=== PATIENT | female | born 1965 | race Caucasian/White ===

== ENCOUNTER 2021-08-09 10:58 | Inpatient (IN) | payer BC ==
[~2021-08-09] VITALS: Ht 167.6 cm; Wt 84.5 kg
[~2021-08-09 10:58] MED LIST: CARV25TA2 PO; ESOM20CA PO; LEVO100T5 PO; LOSA-73 PO; ONDA-84 PO; ZOLP10TA PO
[2021-08-09] MEDS: IV RINGERS,LACTATED 1000ML 1,000 ML IV SCH ×2 (11:25→18:08)
[2021-08-09 11:31] VITALS: BP 144/88
[2021-08-09] MEDS ORDERED: ONDANSETRON PF 4 MG/2 ML VIAL. IM ONE (11:45)
[2021-08-09] MEDS ORDERED: SCOPOLAMINE 1.5MG PATCH. TD ONE ×2 (11:49→12:15)
--- NOTE | 2021-08-09 12:02 | PDOC ---
SURGICAL PROGRESS NOTE DATE: 08/09/21 TIME: 11:59 Subjective Pre-Op Note 55 yo F with biliary dyskinesia. TO OR for laparoscopic versus open cholecystectomy with cholangiogram, liver biopsy. R/R/B/A d/w pt and pt's supportive SO. Risks, including, but not limited to: bleeding, infection, damage to surrounding structures, risk of anesthesia, risk of open, risk of not resolving symptoms. They appear to understand, their questions are answered and they elect to p roceed Office note H&P reviewed and unchanged. Vital Signs Vital Signs Date Time Temp Pulse Resp B/P (MAP) Pulse Ox O2 Delivery O2 Flow Rate FiO2 08/09/21 11:34 97.5 79 144/88 97 Room Air 97.5 08/09/21 11:31 14 Justicifation of Admission Dx: Justifications for Admission: Justification of Admission Dx: N/A SHANA SALAZAR MD August 09, 2021 12:02
[2021-08-09] MEDS ORDERED: IOHEXOL 300 MG/ML 50 ML VIAL. ONE (13:34)
[2021-08-09] MEDS ORDERED: BUPIVACAINE-EPI 0.5% 30 ML VIAL KIT. ONE (13:34)
[2021-08-09] MEDS ORDERED: BISACODYL 10 MG SUPP.RECT. ONE (13:34)
[2021-08-09] MEDS ORDERED: SURGICEL HEMOSTAT 2X14 EACH. ONE (13:34)
[2021-08-09] MEDS ORDERED: SEVOFLURANE 61 TO 120 MINUTES. IH ONE (13:36)
[2021-08-09] MEDS ORDERED: PROPOFOL 10 MG/ML (20ML) VIAL. IV ONE ×2 (13:36→14:27)
[2021-08-09] MEDS ORDERED: ONDANSETRON PF 4 MG/2 ML VIAL. ONE (13:36)
[2021-08-09] MEDS ORDERED: LIDOCAINE 2% PF 5 ML VIAL. ONE (13:36)
[2021-08-09] MEDS ORDERED: DEXAMETHASONE SOD PHOS 4 MG/ML VIAL ONE (13:36)
[2021-08-09] MEDS ORDERED: fentaNYL PF VIAL 100 MCG/2 ML VIAL ONE (13:36)
[2021-08-09] MEDS ORDERED: ROCURONIUM 50 MG/5 ML VIAL. ONE (13:38)
[2021-08-09] MEDS ORDERED: NEOSTIGMINE METHYLSULFATE 5 MG/5 ML SYRINGE. ONE (13:39)
[2021-08-09] MEDS ORDERED: HEPARIN 1,000 UNIT in IV NORMAL SALINE 1,000 ML for SURG PERIOP IRR ONE (14:00)
[2021-08-09] MEDS ORDERED: HYDROmorphone 2 MG/ML INJ. ONE (14:20)
[2021-08-09] MEDS ORDERED: PHENYLEPHRINE in 0.9% NACL PF 1 MG/10 ML SYRINGE. IV ONE (14:44)
[2021-08-09] MEDS ORDERED: ePHEDrine PF IN SALINE 50 MG/10 ML SYRINGE. IV ONE (14:56)
[2021-08-09] MEDS ORDERED: HYDROcodone/APAP 5/325MG 1 TAB TABLET PO PRN (16:00)
[2021-08-09] MEDS ORDERED: 0.9 % SODIUM CHLORIDE 10 ML DISP.SYRIN. IV PRN (16:00)
[2021-08-09] MEDS ORDERED: DEXTROSE 50% 25 GM / 50ML DISP.SYRIN. IV PRN (16:00)
[2021-08-09] MEDS: IV NORMAL SALINE 1000ML BAG 1,000 ML IV SCH (16:00)
[2021-08-09] MEDS ORDERED: NALOXONE 0.4 MG/ML VIAL. IV PRN (16:00)
[2021-08-09] MEDS ORDERED: PROCHLORPERAZINE 10 MG/2 ML VIAL. ONE (16:35)
[2021-08-09] MEDS ORDERED: PROCHLORPERAZINE 10 MG/2 ML VIAL. IV PRN (16:45)
[2021-08-09] MEDS: ONDANSETRON PF 4 MG/2 ML VIAL. IVP PRN (18:08)
[2021-08-09 19:00] VITALS: BP 137/80
[2021-08-09] MEDS: DOCUSATE SODIUM 100 MG CAPSULE. PO SCH (20:43)
--- NOTE | 2021-08-09 21:11 | PDOC4 ---
OPERATIVE NOTE Date: Date: August 09, 2021 Pre-Op Diagnosis: Biliary dyskinesia, hepatomegaly Post-Op Diagnosis: same, cirrhosis Procedure Performed: laparoscopic cholecystectomy with cholangiogram, liver biopsy Surgeon: Atif Salazar Anesthesia Type: GETA plus local Blood Loss: 50 Specimans Obtained: gallbladder, liver biopsy Findings: morbid obesity, chronic induration of gallbladder, normal cholangiogram; hard, nodular liver, with fatty infiltration Complications: none Operative Note: After obtaining informed consent, patient was taken to OR, induced under GETA and prepped in the usual fashion. 5 mm ports placed umbilical and RUQ, 12 port placed epigastric, all under laparoscopic guidance. Abdominal cavity was explored and normal except as noted above. Gallbladder was taken off fossa using cautery in dome down fashion. This was difficult, given obesity and hard liver. Cystic artery ligated with clips. Cholangiogram obtained via cystic duct and was normal. Cystic duct was controlled with clips and hemolok. Gallbladder was placed in bag, delivered and sent to pathology. Endoshears used to excise portion of liver and sent to pathology. Hemostasis was obtained with cautery. Copious irrigation. No evidence of bleeding or other pathology. Ports removed without bleeding. Fascia repaired with 0 vicryl. Skin repaired with 4 0 monocryl. Dressing placed. Patient tolerated procedure well and sent to PACU in stable condition. All counts correct. Wound class is 3. Of note, pt's SO notes consumption of 1/5 of gin within 3 days. Etoh cessation will be encouraged. SHANA SALAZAR MD August 09, 2021 21:11
[2021-08-09] MEDS ORDERED: ZOLPIDEM 5 MG TABLET. PO PRN (21:15)
[2021-08-09] MEDS: CARVEDILOL 12.5 MG TABLET. PO SCH (21:26)
[2021-08-09 23:09] VITALS: BP 140/60
[2021-08-10] MEDS: IV RINGERS,LACTATED 1000ML 1,000 ML IV SCH ×4 (01:05→14:25)
[2021-08-10] MEDS: ONDANSETRON PF 4 MG/2 ML VIAL. IVP PRN ×4 (01:52→20:33)
[2021-08-10] MEDS: MORPHINE SULFATE 2 MG/ML INJ. IV PRN ×6 (04:16→20:34)
[2021-08-10] MEDS: LEVOTHYROXINE 100 MCG TABLET PO SCH (05:25)
[2021-08-10 07:00] VITALS: BP 127/75
[2021-08-10 07:24] LABS: BASO % 0 % (0-3); EOS # 0.1 x10^3/uL (0.0-0.7); EOS % 1 % (0-3); HEMATOCRIT 30.2 % (36.0-47.0); HEMOGLOBIN 10.3 g/dL (12.0-15.5); LYMPH # 1.2 x10^3/uL (1.0-4.8); LYMPH % 16 % (24-48); MEAN CORPUSCULAR HEMOGLOBIN 34 pg (25-35); MEAN CORPUSCULAR HGB CONC 34 g/dL (31-37); MEAN CORPUSCULAR VOLUME 100 fL (79-100); MONO # 0.8 x10^3/uL (0.0-1.1); MONO % 10 % (0-9); NEUT # 5.4 x10^3/uL (1.8-7.7); NEUT % 73 % (31-73); PLATELET COUNT 114 x10^3/uL (140-400); RED BLOOD COUNT 3.03 x10^6/uL (3.50-5.40); RED CELL DISTRIBUTION WIDTH 13.8 % (11.5-14.5); WHITE BLOOD COUNT 7.4 x10^3/uL (4.0-11.0)
[2021-08-10 07:34] LABS: ALBUMIN 2.1 g/dL (3.4-5.0); CALCIUM 6.1 mg/dL (8.5-10.1); CREATININE 2.2 mg/dL (0.6-1.0); DIRECT BILIRUBIN 1.6 mg/dL (0.0-0.2); GFR 23.1; TOTAL BILIRUBIN 2.4 mg/dL (0.2-1.0); TOTAL PROTEIN 5.5 g/dL (6.4-8.2)
[2021-08-10 07:37] LABS: POTASSIUM 2.6 mmol/L (3.5-5.1)
[2021-08-10] MEDS ORDERED: POTASSIUM CHLORIDE 20 MEQ TABLET.ER. PO SCH (07:45)
[2021-08-10] MEDS ORDERED: ELECTROLYTE (NON-ICU) PROTOCOL. MC PRN (07:45)
[2021-08-10] MEDS ORDERED: POTASSIUM CHLORIDE 20 MEQ TABLET.ER. PO ONE (07:45)
[2021-08-10] MEDS ORDERED: POTASSIUM CHLORIDE 10MEQ 100 ML IV SCH ×2 (07:45)
[2021-08-10] MEDS: POTASSIUM CHLORIDE 10MEQ 100 ML IV SCH ×4 (08:03→14:30)
[2021-08-10] MEDS: DOCUSATE SODIUM 100 MG CAPSULE. PO SCH ×2 (09:41→21:00)
[2021-08-10] MEDS: LOSARTAN POTASSIUM 25 MG TABLET. PO SCH (09:42)
[2021-08-10] MEDS: CARVEDILOL 12.5 MG TABLET. PO SCH ×2 (09:42→17:13)
[2021-08-10 11:00] VITALS: BP 131/67
[2021-08-10 15:00] VITALS: BP 126/87
--- NOTE | 2021-08-10 15:22 | PDOC ---
SURGICAL PROGRESS NOTE DATE: 08/10/21 TIME: 15:20 Subjective Pt with c/o N/V, pain controlled Vital Signs Vital Signs Date Time Temp Pulse Resp B/P (MAP) Pulse Ox O2 Delivery O2 Flow Rate FiO2 08/10/21 14:32 16 Room Air 08/10/21 11:00 97.6 81 131/67 (88) 92 97.6 08/10/21 07:35 2.0 I&O Intake and Output 08/10/21 07:00 Intake Total 2750 ml Output Total 50 ml Balance 2700 ml Intake Oral 1000 ml IV Total 1750 ml Output Estimated Blood Loss 50 ml General: Alert, Oriented X3, Cooperative, No acute distress Abdomen: Soft, No tenderness, Other (dressing intact) Labs Laboratory Tests Test 08/09/21 11:00 08/10/21 06:50 POC SARS CoV-2 Antigen Negative (NEGATIVE) White Blood Count 7.4 x10^3/uL (4.0-11.0) Red Blood Count 3.03 x10^6/uL (3.50-5.40) Hemoglobin 10.3 g/dL (12.0-15.5) Hematocrit 30.2 % (36.0-47.0) Mean Corpuscular Volume 100 fL (79-100) Mean Corpuscular Hemoglobin 34 pg (25-35) Mean Corpuscular Hemoglobin Concent 34 g/dL (31-37) Red Cell Distribution Width 13.8 % (11.5-14.5) Platelet Count 114 x10^3/uL (140-400) Neutrophils (%) (Auto) 73 % (31-73) Lymphocytes (%) (Auto) 16 % (24-48) Monocytes (%) (Auto) 10 % (0-9) Eosinophils (%) (Auto) 1 % (0-3) Basophils (%) (Auto) 0 % (0-3) Neutrophils # (Auto) 5.4 x10^3/uL (1.8-7.7) Lymphocytes # (Auto) 1.2 x10^3/uL (1.0-4.8) Monocytes # (Auto) 0.8 x10^3/uL (0.0-1.1) Eosinophils # (Auto) 0.1 x10^3/uL (0.0-0.7) Basophils # (Auto) 0.0 x10^3/uL (0.0-0.2) Sodium Level 133 mmol/L (136-145) Potassium Level 2.6 mmol/L (3.5-5.1) Chloride Level 92 mmol/L (98-107) Carbon Dioxide Level 28 mmol/L (21-32) Anion Gap 13 (6-14) Blood Urea Nitrogen 6 mg/dL (7-20) Creatinine 2.2 mg/dL (0.6-1.0) Estimated GFR (Cockcroft-Gault) 23.1 Glucose Level 106 mg/dL (70-99) Calcium Level 6.1 mg/dL (8.5-10.1) Total Bilirubin 2.4 mg/dL (0.2-1.0) Direct Bilirubin 1.6 mg/dL (0.0-0.2) Aspartate Amino Transf (AST/SGOT) 141 U/L (15-37) Alanine Aminotransferase (ALT/SGPT) 51 U/L (14-59) Alkaline Phosphatase 68 U/L (46-116) Total Protein 5.5 g/dL (6.4-8.2) Albumin 2.1 g/dL (3.4-5.0) Laboratory Tests Test 08/10/21 06:50 White Blood Count 7.4 x10^3/uL (4.0-11.0) Red Blood Count 3.03 x10^6/uL (3.50-5.40) Hemoglobin 10.3 g/dL (12.0-15.5) Hematocrit 30.2 % (36.0-47.0) Mean Corpuscular Volume 100 fL (79-100) Mean Corpuscular Hemoglobin 34 pg (25-35) Mean Corpuscular Hemoglobin Concent 34 g/dL (31-37) Red Cell Distribution Width 13.8 % (11.5-14.5) Platelet Count 114 x10^3/uL (140-400) Neutrophils (%) (Auto) 73 % (31-73) Lymphocytes (%) (Auto) 16 % (24-48) Monocytes (%) (Auto) 10 % (0-9) Eosinophils (%) (Auto) 1 % (0-3) Basophils (%) (Auto) 0 % (0-3) Neutrophils # (Auto) 5.4 x10^3/uL (1.8-7.7) Lymphocytes # (Auto) 1.2 x10^3/uL (1.0-4.8) Monocytes # (Auto) 0.8 x10^3/uL (0.0-1.1) Eosinophils # (Auto) 0.1 x10^3/uL (0.0-0.7) Basophils # (Auto) 0.0 x10^3/uL (0.0-0.2) Sodium Level 133 mmol/L (136-145) Potassium Level 2.6 mmol/L (3.5-5.1) Chloride Level 92 mmol/L (98-107) Carbon Dioxide Level 28 mmol/L (21-32) Anion Gap 13 (6-14) Blood Urea Nitrogen 6 mg/dL (7-20) Creatinine 2.2 mg/dL (0.6-1.0) Estimated GFR (Cockcroft-Gault) 23.1 Glucose Level 106 mg/dL (70-99) Calcium Level 6.1 mg/dL (8.5-10.1) Total Bilirubin 2.4 mg/dL (0.2-1.0) Direct Bilirubin 1.6 mg/dL (0.0-0.2) Aspartate Amino Transf (AST/SGOT) 141 U/L (15-37) Alanine Aminotransferase (ALT/SGPT) 51 U/L (14-59) Alkaline Phosphatase 68 U/L (46-116) Total Protein 5.5 g/dL (6.4-8.2) Albumin 2.1 g/dL (3.4-5.0) Assessment/Plan s/p lap haydee replace k will ask hospitalist to comment, especially given etoh use and risk of withdrawal will ask GI to comment on N/V encouraged etoh cessation Justicifation of Admission Dx: Justifications for Admission: Justification of Admission Dx: N/A SHANA SALAZAR MD August 10, 2021 15:21
[2021-08-10] MEDS: IV NORMAL SALINE 1000ML BAG 1,000 ML IV SCH (15:42)
--- NOTE | 2021-08-10 16:09 | PDOC2 ---
GI CONSULT Date of Service: DATE: 08/10/21 TIME: 15:52 Reason For Consult: biliary dyskinesia HPI: HPI: 55 y/o female s/p cholecystectomy and liver biopsy, h/o biliary dyskinesia. Tells me ill x 12 weeks - describes bloating, "air in stomach that I can't get out," feeling that food "sits" in upper abdomen, early satiety, and nausea/vomiting/retching. Bloating discomfort is constant. N/v/retching occurs with or without eating - often "white foam." Keeps pills down. Symptoms unchanged post-op, but not worse. Has seen Dr. Martinez. EGD 07/13/21: LA Grade A reflux esophagitis (negative for Sunshine's), chronic gastritis (no biopsy), normal duodenum. Given Nexium 20mg QD - she felt not helpful so quick after short trial. Per office notes, CT 07/19/21 showed hepatic steatosis and hepatomegaly and US s showed hepatomegaly with fatty infiltration throughout the liver. Records from [facility] - done at [facility] (where CT and US also performed). Recommendation made for GES at office visit on 07/27/21 - not done yet. No previous colonoscopy. Denies reflux/heartburn, dysphagia, hematemesis, hematochezia, and melena. Estimates 9 pounds weight loss during this time. Had runny stools for awhile, now not stooling that much - attributes to not eating. Passing some flatus. Was told of abnormal liver labs in the past - "it's because I drink too much." Says Hepatitis labs were negative w/ PCP. Denies pancreas and PUD history. On ASA. Significant other present, says he is diabetic and checks her glucose frequently and "she's the opposite of diabetic." He also says that she hasn't drank in a couple days and that doesn't make a difference. Additionally describes her only being able ot eat half an enchilada when they were out to eat recently. PMH: PMH: HTN, hypothyroidism, MRSA breast augmentation, , tubal ligation, tonsillectomy FH: Family History: Cancer (father - pancreatic), DM, Hypertension Social History: Smoke: Quit ALCOHOL: heavy (daily, "too much") Drugs: Other (in past but never IVDU) ROS: GEN: Denies fevers, chills, sweats HEENT: Denies blurred vision, sore throat CV: Denies chest pain RESP: Denies shortness of air, cough GI: Per HPI : Denies hematuria, dysuria ENDO: +weight loss NEURO: Denies confusion, dizziness MSK: Denies weakness, joint pain/swelling SKIN: Denies jaundice, pruritus Vitals: Vitals: Vital Signs Date Time Temp Pulse Resp B/P (MAP) Pulse Ox O2 Delivery O2 Flow Rate FiO2 08/10/21 15:42 Room Air 08/10/21 15:00 97.8 73 18 126/87 (100) 93 97.8 08/10/21 07:35 2.0 Labs: Labs: Laboratory Tests Test 08/10/21 06:50 White Blood Count 7.4 x10^3/uL (4.0-11.0) Red Blood Count 3.03 x10^6/uL (3.50-5.40) Hemoglobin 10.3 g/dL (12.0-15.5) Hematocrit 30.2 % (36.0-47.0) Mean Corpuscular Volume 100 fL (79-100) Mean Corpuscular Hemoglobin 34 pg (25-35) Mean Corpuscular Hemoglobin Concent 34 g/dL (31-37) Red Cell Distribution Width 13.8 % (11.5-14.5) Platelet Count 114 x10^3/uL (140-400) Neutrophils (%) (Auto) 73 % (31-73) Lymphocytes (%) (Auto) 16 % (24-48) Monocytes (%) (Auto) 10 % (0-9) Eosinophils (%) (Auto) 1 % (0-3) Basophils (%) (Auto) 0 % (0-3) Neutrophils # (Auto) 5.4 x10^3/uL (1.8-7.7) Lymphocytes # (Auto) 1.2 x10^3/uL (1.0-4.8) Monocytes # (Auto) 0.8 x10^3/uL (0.0-1.1) Eosinophils # (Auto) 0.1 x10^3/uL (0.0-0.7) Basophils # (Auto) 0.0 x10^3/uL (0.0-0.2) Sodium Level 133 mmol/L (136-145) Potassium Level 2.6 mmol/L (3.5-5.1) Chloride Level 92 mmol/L (98-107) Carbon Dioxide Level 28 mmol/L (21-32) Anion Gap 13 (6-14) Blood Urea Nitrogen 6 mg/dL (7-20) Creatinine 2.2 mg/dL (0.6-1.0) Estimated GFR (Cockcroft-Gault) 23.1 Glucose Level 106 mg/dL (70-99) Calcium Level 6.1 mg/dL (8.5-10.1) Total Bilirubin 2.4 mg/dL (0.2-1.0) Direct Bilirubin 1.6 mg/dL (0.0-0.2) Aspartate Amino Transf (AST/SGOT) 141 U/L (15-37) Alanine Aminotransferase (ALT/SGPT) 51 U/L (14-59) Alkaline Phosphatase 68 U/L (46-116) Total Protein 5.5 g/dL (6.4-8.2) Albumin 2.1 g/dL (3.4-5.0) Allergies: Coded Allergies: Sulfa (Sulfonamide Antibiotics) (Verified Adverse Reaction, Intermediate, Rash, 08/09/21) Medications: Current Medications Medications (Trade) Dose Ordered Sig/Conner Route PRN Reason Start Time Stop Time Status Last Admin Dose Admin Ringer's Solution 1,000 ml @ 100 mls/hr Q10H IV 08/09/21 16:00 08/10/21 12:00 Acetaminophen/ Hydrocodone Bitart (Lortab 5/325) 1 tab PRN Q4HRS PRN PO MILD PAIN 1-3 08/09/21 16:00 08/10/21 01:09 Morphine Sulfate (Morphine Sulfate) 1 mg PRN Q1HR PRN IV PAIN-SEE COMMENTS 08/09/21 16:00 08/10/21 14:32 Docusate Sodium (Colace) 100 mg BID PO 08/09/21 21:00 08/10/21 09:41 Ondansetron HCl (Zofran) 4 mg PRN Q6HRS PRN IVP NAUESA, 1ST CHOICE 08/09/21 16:00 08/10/21 14:31 Prochlorperazine Edisylate (Compazine) 5 mg PRN Q10MIN PRN IV NAUSEA 08/09/21 16:45 08/09/21 16:38 Levothyroxine Sodium (Synthroid) 100 mcg DAILY06 PO 08/10/21 06:00 08/10/21 05:25 Losartan Potassium (Cozaar) 25 mg DAILY PO 08/10/21 09:00 08/10/21 09:42 Carvedilol (Coreg) 25 mg BIDWMEALS PO 08/09/21 22:00 08/10/21 09:42 Zolpidem Tartrate (Ambien) 5 mg PRN QHS PRN PO INSOMNIA, MAY REPEAT X1 08/09/21 21:15 08/09/21 21:25 Potassium Chloride/Water 100 ml @ 100 mls/hr Q1H IV 08/10/21 09:00 08/10/21 12:59 DC 08/10/21 14:30 Imaging: Imaging: IOC 08/09/21 pending PE: GEN: NAD HEENT: Atraumatic, PERRL LUNGS: CTAB HEART: RRR ABD: large/probably some distention but soft, epigastric/incisional discomfort, BS+ EXTREMITY/SKIN: BLE w/ compression stockings and SCDs NEURO/PSYCH: A & O 3, perhaps a bit tremulous A/P: A/P: S/p cholecystectomy and liver biopsy Upper abdominal discomfort, bloating, early satiety, n/v, weight loss Macrocytic anemia, thrombocytopenia, hypokalemia, ROSANNA, abnormal LFTs, hypoalbuminemia GERD - quit PPI trial CRC screen - none Suspected alcoholic liver disease - hepatic steatosis/hepatomegaly on past imaging, cirrhosis suspected in OR Alcohol overuse FH pancreatic cancer -- Would resume PPI - IV for now. Monitor labs, check additional (B12, iron, INR). Check KUB for completeness. Will review additional recs w/ Dr. Martinez - unlikely to tolerate GES at this time. EREN STOVALL August 10, 2021 16:09
[2021-08-10] MEDS: PANTOPRAZOLE IV PUSH 40 MG VIAL. IVP SCH (17:12)
[2021-08-10 17:15] LABS: PROTHROMBIN TIME PATIENT 16.4 SEC (11.7-14.0)
[2021-08-10 19:00] VITALS: BP 138/73
[2021-08-10] MEDS ORDERED: HALOPERIDOL LACTATE 5 MG/ML VIAL. IVP PRN (23:15)
[2021-08-10] MEDS ORDERED: diphenhydrAMINE 50 MG/ML VIAL IVP PRN (23:15)
[2021-08-10] MEDS ORDERED: chlordiazePOXIDE HCL 25 MG CAPSULE PO PRN ×2 (23:15)
--- NOTE | 2021-08-10 23:20 | NUR ---
Rapid Response Note: Prior to Rapid Response, VAMPER requested Nurse Senior [employer] Consultant speak to patient regarding pain meds. VAMPER stated patient was refusing oral pain meds and requesting Morphine IVP hourly. Educated patient on better pain control with oral pain meds and questioned patient if she was feeling anxious which she stated yes. Told patient her VAMPER would call physician for medication to help her relax and I would bring Lortab, patient agreeable. RECONDITIONER was obtaining vital signs and patient stated she was, 'jumpy and that scared me'; SBP 190. Patient does have history of drinking 2-4oz of alcohol a day every day. After scanning arm band and getting ready to administer med, patient looked up and to her right, appeared very frightened/wide eyed, grabbed my arm tightly and yelled out. Attempted to talk to patient and asked what was wrong when patient fell back into the bed, entire body became rigid and appeared to have tonic/clonic seizure. Seizure lasted approximately 10 seconds with 45 second apnea period; patient was immediately turned to her right side upon onset of seizure. Patient then had additional seizure which appeared exactly as previous seizure but without apnea. Seizure lasted ~5 seconds; postictal period again lasted about 10 seconds. Patient did become arousable to name, appeared fearful and was pushing staff away, this lasted about 20 seconds and patient calmed and became alert to self--patient reoriented to time, place and events. Dr Louis paged, returned page, notified of above, patient with history of daily alcohol use but not had on CIWA protocol; orders received to start CIWA protocol, stat CT head and consult Neurology in am. While speaking to physician, patient got out of her bed, began roaming in her room then went to the bathroom. When staff approached patient, she became agitated and belligerent; she did allow her VAMPER to assist her back to bed and she calmed. VAMPER and patient notified of orders from Dr Louis. Patient was educated on s/sx of alcohol withdrawal and treatment with Ativan. Patient verbalized understanding. Ativan 4MG IVP administered for CIWA 15; patient educated on importance of calling for assistance, call light within reach, bed in low position and bed alarm on. Post seizure SBP again 190's--staff to recheck after Ativan takes affect. Patient remains on unit at this time, VAMPER to call Rapid Response for additional seizure activity. Patient will be taken to CT by staff. Addendum: 08/11/21 at 0017 by MARKIE BLACKBURN RN Amended: Links added.
--- NOTE | 2021-08-10 23:20 | NUR ---
Nurse manager dialysis ZEV Schaefer at bedside during witnessed seizure. Rapid response called and ZEV Schaefer at bedside throughout rapid. This PEWTER FABRICATOR will continue to monitor.
[2021-08-10 23:27] VITALS: BP 197/119
--- NOTE | 2021-08-10 23:56 | RAD ---
CT scan of the head without contrast 08/10/2021 Clinical History: Seizure. Technique: Unenhanced, contiguous, 5 mm axial sections were obtained through the head. One or more of the following individualized dose reduction techniques were utilized for this study: 1. Automated exposure control. 2. Adjustment of the mA and/or kV according to patient size. 3. Use of iterative reconstruction technique. Findings: There is generalized parenchymal atrophy. No acute parenchymal abnormality is seen. No ext ra-axial fluid collection is noted. No skull fracture is seen. Impression: No acute intracranial abnormality is seen. Electronically signed by: Karlo Roberto MD (08/10/2021 11:53 PM) [id number]
[2021-08-11] VITALS (7 sets, daily range): BP systolic 111–153; BP diastolic 67–93
[2021-08-11] MEDS: IV RINGERS,LACTATED 1000ML 1,000 ML IV SCH ×2 (03:52→08:00)
[2021-08-11 04:49] LABS: BASO % 0 % (0-3); EOS # 0.1 x10^3/uL (0.0-0.7); EOS % 1 % (0-3); HEMATOCRIT 29.3 % (36.0-47.0); HEMOGLOBIN 10.3 g/dL (12.0-15.5); LYMPH # 1.2 x10^3/uL (1.0-4.8); LYMPH % 14 % (24-48); MEAN CORPUSCULAR HEMOGLOBIN 35 pg (25-35); MEAN CORPUSCULAR HGB CONC 35 g/dL (31-37); MEAN CORPUSCULAR VOLUME 98 fL (79-100); MONO # 0.9 x10^3/uL (0.0-1.1); MONO % 11 % (0-9); NEUT # 5.8 x10^3/uL (1.8-7.7); NEUT % 73 % (31-73); PLATELET COUNT 139 x10^3/uL (140-400); RED BLOOD COUNT 2.98 x10^6/uL (3.50-5.40); RED CELL DISTRIBUTION WIDTH 13.6 % (11.5-14.5)
[2021-08-11 05:08] LABS: ALBUMIN 2.1 g/dL (3.4-5.0); ALBUMIN/GLOBULIN RATIO 0.6 (1.0-1.7); CREATININE 1.6 mg/dL (0.6-1.0); GFR 33.3; TOTAL BILIRUBIN 2.6 mg/dL (0.2-1.0); TOTAL PROTEIN 5.5 g/dL (6.4-8.2)
[2021-08-11 05:16] LABS: CALCIUM 5.8 mg/dL (8.5-10.1); POTASSIUM 2.5 mmol/L (3.5-5.1)
[2021-08-11] MEDS ORDERED: CALCIUM GLUCONATE 1,000 MG/10 ML VIAL. IVP ONE (05:45)
[2021-08-11] MEDS: LEVOTHYROXINE 100 MCG TABLET PO SCH (06:20)
[2021-08-11] MEDS: POTASSIUM CHLORIDE 10MEQ 100 ML IV SCH ×7 (06:34→23:46)
--- NOTE | 2021-08-11 07:27 | PDOC1 ---
History and Physical Date of Service: DOS: DATE: 08/11/21 TIME: 07:21 Chief Complaint: Chief Complain: Acute abdominal pain History of Present Illness: HPI: 55-year-old female who presented to the hospital for an elective cholecystectomy status post laparoscopic cholecystectomy with postoperative course complicated by electrolyte derangement and seizures and alcohol withdrawal. Patient had a episode of tonic-clonic seizures last night in the postoperative period. Patient has severe electrolyte abnormalities including hypocalcemia, hypokalemia, hyponatremia, hypochloremia and some kidney injury. Patient was given Ativan and also IV electrolyte replacements. Past Medical/Surgical History: PMH/PSH: History of hypertension, hypothyroidism, breast augmentation, , tubal ligation, tonsillectomy Allergies: Allergies: Coded Allergies: Sulfa (Sulfonamide Antibiotics) (Verified Adverse Reaction, Intermediate, Rash, 08/09/21) Family History: Family History: History of diabetes mellitus and hypertension in the family Social History: Social History: Former smoker and heavy drinking. Current Medications: Current Medications Current Medications Cefazolin Sodium/ Dextrose 50 ml @ 100 mls/hr 1X PREOP PRN IV PRIOR TO PROCEDURE Last administered on 08/09/21at 13:58; Start 08/09/21 at 06:00; Stop 08/09/21 at 18:00; Status DC Ondansetron HCl (Zofran) 4 mg 1X ONCE IM Last administered on 08/09/21at 11:45; Start 08/09/21 at 11:45; Stop 08/09/21 at 11:46; Status DC Ringer's Solution 1,000 ml @ 75 mls/hr [id number] IV Last administered on 08/10/21at 01:05; Start 08/09/21 at 11:45; Stop 08/10/21 at 19:42; Status DC Scopolamine (Transderm-Scop) 1 patch STK-MED ONCE TD ; Start 08/09/21 at 11:49; Stop 08/09/21 at 11:49; Status DC Scopolamine (Transderm-Scop) 1 patch 1X ONCE TD Last administered on 08/09/21at 12:10; Start 08/09/21 at 12:15; Stop 08/09/21 at 12:16; Status DC Cellulose (Surgicel Hemostat 2x14) 1 each STK-MED ONCE .ROUTE ; Start 08/09/21 at 13:34; Stop 08/09/21 at 13:34; Status DC Bupivacaine HCl/ Epinephrine Bitart (Sensorcain-Epi 0.5% Kit) 30 ml STK-MED ONCE .ROUTE Last administered on 08/09/21at 14:17; Start 08/09/21 at 13:34; Stop 08/09/21 at 13:35; Status DC Iohexol (Omnipaque 300 Mg/ml) 50 ml STK-MED ONCE .ROUTE Last administered on 08/09/21at 14:17; Start 08/09/21 at 13:34; Stop 08/09/21 at 13:35; Status DC Bisacodyl (Dulcolax Supp) 10 mg STK-MED ONCE .ROUTE ; Start 08/09/21 at 13:34; Stop 08/09/21 at 13:35; Status DC Lidocaine HCl (Lidocaine Pf 2% Vial) 5 ml STK-MED ONCE .ROUTE ; Start 08/09/21 at 13:36; Stop 08/09/21 at 13:36; Status DC Propofol (Diprivan) 200 mg STK-MED ONCE IV ; Start 08/09/21 at 13:36; Stop 08/09/21 at 13:36; Status DC Ondansetron HCl (Zofran) 4 mg STK-MED ONCE .ROUTE ; Start 08/09/21 at 13:36; Stop 08/09/21 at 13:36; Status DC Dexamethasone Sodium Phosphate (Decadron) 4 mg STK-MED ONCE .ROUTE ; Start at 13:36; Stop 08/09/21 at 13:36; Status DC Sevoflurane (Ultane) 60 ml STK-MED ONCE IH ; Start 08/09/21 at 13:36; Stop 08/09/21 at 13:36; Status DC Fentanyl Citrate (Fentanyl 2ml Vial) 100 mcg STK-MED ONCE .ROUTE ; Start 08/09/21 at 13:36; Stop 08/09/21 at 13:36; Status DC Rocuronium [place] (Zemuron) 50 mg STK-MED ONCE .ROUTE ; Start 08/09/21 at 13:38; Stop 08/09/21 at 13:38; Status DC Heparin Sodium (Porcine) 1000 unit/Sodium Chloride 1,001 ml @ 1,001 mls/hr 1X ONCE IRR Last administered on 08/09/21at 14:29; Start 08/09/21 at 14:00; Stop 08/09/21 at 14:59; Status DC Neostigmine [place] (Neostigmine Methylsulfate) 5 mg STK-MED ONCE .ROUTE ; Start 08/09/21 at 13:39; Stop 08/09/21 at 13:39; Status DC Hydromorphone HCl (Dilaudid) 2 mg STK-MED ONCE .ROUTE ; Start 08/09/21 at 14:20; Stop 08/09/21 at 14:20; Status DC Propofol (Diprivan) 200 mg STK-MED ONCE IV ; Start 08/09/21 at 14:27; Stop 08/09/21 at 14:28; Status DC Phenylephrine HCl (PHENYLEPHRINE in 0.9% NACL PF) 1 mg STK-MED ONCE IV ; Start 08/09/21 at 14:44; Stop 08/09/21 at 14:44; Status DC Ephedrine Sulfate (ePHEDrine PF IN SALINE SYRINGE) 50 mg STK-MED ONCE IV ; Start 08/09/21 at 14:56; Stop 08/09/21 at 14:56; Status DC Sodium Chloride (Normal Saline Flush) 3 ml QSHIFT PRN IV AFTER MEDS AND BLOOD DRAWS; Start 08/09/21 at 16:00 Ringer's Solution 1,000 ml @ 100 mls/hr Q10H IV Last administered on 08/11/21at 03:52; Start 08/09/21 at 16:00 Dextrose (Dextrose 50%-Water Syringe) 12.5 gm PRN Q15MIN PRN IV SEE COMMENTS; Start 08/09/21 at 16:00 Acetaminophen/ Hydrocodone Bitart (Lortab 5/325) 1 tab PRN Q4HRS PRN PO MILD PAIN 1-3 Last administered on 08/10/21at 01:09; Start 08/09/21 at 16:00 Naloxone HCl (Narcan) 0.4 mg PRN Q2MIN PRN IV SEE INSTRUCTIONS; Start 08/09/21 at 16:00 Sodium Chloride 1,000 ml @ 25 mls/hr Q24H IV ; Start 08/09/21 at 16:00 Morphine Sulfate (Morphine Sulfate) 1 mg PRN Q1HR PRN IV PAIN-SEE COMMENTS Last administered on 08/10/21at 20:34; Start 08/09/21 at 16:00 Docusate Sodium (Colace) 100 mg BID PO Last administered on 08/10/21at 09:41; Start 08/09/21 at 21:00 Ondansetron HCl (Zofran) 4 mg PRN Q6HRS PRN IVP NAUESA, 1ST CHOICE Last administered on 08/10/21at 20:33; Start 08/09/21 at 16:00 Prochlorperazine Edisylate (Compazine) 5 mg PRN Q10MIN PRN IV NAUSEA Last administered on 08/09/21at 16:38; Start 08/09/21 at 16:45 Prochlorperazine Edisylate (Compazine) 10 mg STK-MED ONCE .ROUTE ; Start 08/09/21 at 16:35; Stop 08/09/21 at 16:35; Status DC Levothyroxine Sodium (Synthroid) 100 mcg DAILY06 PO Last administered on 08/11/21at 06:20; Start 08/10/21 at 06:00 Losartan Potassium (Cozaar) 25 mg DAILY PO Last administered on 08/10/21at 09:42; Start 08/10/21 at 09:00 Carvedilol (Coreg) 25 mg BIDWMEALS PO Last administered on 08/10/21at 17:13; Start 08/09/21 at 22:00 Zolpidem Tartrate (Ambien) 5 mg PRN QHS PRN PO INSOMNIA, MAY REPEAT X1 Last administered on 08/09/21at 21:25; Start 08/09/21 at 21:15 Info (Non-Icu Electrolyte Protocol) 1 ea CONT PRN PRN MC PER PROTOCOL; Start 08/10/21 at 07:45 Potassium Chloride/Water 100 ml @ 100 mls/hr Q1H IV Last administered on 08/10/21at 14:30; Start 08/10/21 at 09:00; Stop 08/10/21 at 12:59; Status DC Potassium Chloride (Klor-Con) 40 meq 1X ONCE PO ; Start 08/10/21 at 07:45; Stop 08/10/21 at 07:46; Status UNV Potassium Chloride/Water 100 ml @ 100 mls/hr Q1H IV ; Start 08/10/21 at 07:45; Stop 08/10/21 at 11:44; Status UNV Potassium Chloride (Klor-Con) 40 meq Q4H PO ; Start 08/10/21 at 07:45; Stop 08/10/21 at 11:46; Status UNV Potassium Chloride/Water 100 ml @ 100 mls/hr Q1H IV ; Start 08/10/21 at 07:45; Stop 08/10/21 at 11:44; Status UNV Pantoprazole Sodium (PROTONIX VIAL for IV PUSH) 40 mg BIDAC IVP Last administer ed on 08/10/21at 17:12; Start 08/10/21 at 16:30 Multivitamins 10 ml/Thiamine HCl 100 mg/Folic Acid 1 mg/Sodium Chloride 1,011.2 ml @ 100 mls/ hr DAILY IV ; Start 08/11/21 at 09:00; Stop 08/15/21 at 19:07 Multivitamins (Thera M Plus) 1 tab DAILY PO ; Start 08/16/21 at 09:00 Folic Acid (Folic Acid) 1 mg DAILY PO ; Start 08/16/21 at 09:00 Thiamine Mononitrate (Vitamin B-1) 100 mg DAILY PO ; Start 08/16/21 at 09:00 Chlordiazepoxide (Librium) 50 mg PRN Q1HR PRN PO For CIWA 8-14; Start 08/10/21 at 23:15 Chlordiazepoxide (Librium) 100 mg PRN Q1HR PRN PO For CIWA 15 or greater; Start 08/10/21 at 23:15 Lorazepam (Ativan) 4 mg PRN Q1HR PRN PO For CIWA 8-14; Start 08/10/21 at 23:15 Lorazepam (Ativan) 8 mg PRN Q1HR PRN PO For CIWA 15 or greater; Start 08/10/21 at 23:15 Lorazepam (Ativan Inj) 2 mg PRN Q1HR PRN IV For CIWA 8-14; Start 08/10/21 at 23:15 Lorazepam (Ativan Inj) 4 mg PRN Q1HR PRN IV For CIWA 15 or greater Last administered on 08/10/21at 23:23; Start 08/10/21 at 23:15 Haloperidol Lactate (Haldol Inj) 5 mg PRN Q4HRS PRN IVP Hallucinatns,Confusn,Delirium; Start 08/10/21 at 23:15 Diphenhydramine HCl (Benadryl) 25 mg PRN Q15MIN PRN IVP EPS symptoms 2'Haldol admin; Start 08/10/21 at 23:15 Lorazepam (Ativan Inj) 2 mg PRN Q15MIN PRN IV SEE COMMENTS; Start 08/10/21 at 23:15; Stop 08/11/21 at 01:05; Status DC Lorazepam (Ativan Inj) 4 mg PRN Q15MIN PRN IV SEE COMMENTS; Start 08/10/21 at 23:15; Stop 08/11/21 at 01:06; Status DC Potassium Chloride/Water 100 ml @ 100 mls/hr Q1H IV Last administered on 08/11/21at 06:34; Start 08/11/21 at 06:00; Stop 08/11/21 at 13:59 Potassium Chloride (Klor-Con) 40 meq 1X ONCE PO ; Start 08/11/21 at 08:00; Stop 08/11/21 at 08:01 Calcium Gluconate (Calcium Gluconate) 1,000 mg 1X ONCE IVP Last administered on 08/11/21at 06:22; Start 08/11/21 at 05:45; Stop 08/11/21 at 05:51; Status DC Active Scripts Active Reported Losartan Potassium 50 Mg Tablet 25 Mg PO DAILY Levothyroxine Sodium 100 Mcg Tablet 100 Mcg PO DAILYAC Ondansetron Hcl 4 Mg Tablet 4 Mg PO PRN BID PRN Nexium Capsule (Esomeprazole Magnesium) 20 Mg Capsule.dr 20 Mg PO DAILYAC Ambien (Zolpidem Tartrate) 10 Mg Tablet 10 Mg PO PRN QHS PRN Carvedilol 25 Mg Tablet 25 Mg PO BIDWMEALS ROS: Review of Systems Review of System REVIEW OF SYSTEMS: GENERAL: Denies weakness SKIN: No bruising, hair changes or rashes. EYES: No blurred, double or loss of vision. NOSE AND THROAT: No history of nosebleeds, hoarseness or sore throat. HEART: No history of palpitations, chest pain or shortness of breath on exertion. LUNGS: Denies cough, hemoptysis, wheezing or shortness of breath. GASTROINTESTINAL: Abdominal pain GENITOURINARY: No history of frequency, urgency, hesitancy or nocturia. NEUROLOGIC: Denies history of numbness, tingling, or tremor. PSYCHIATRIC: No history of panic, anxiety or depression. ENDOCRINE: No history of heat or cold intolerance, polyuria or polydipsia. EXTREMITIES: Denies joint pain, pain on walking or stiffness. Physical Exam: Vital Signs: Vital Signs Date Time Temp Pulse Resp B/P (MAP) Pulse Ox O2 Delivery O2 Flow Rate FiO2 08/11/21 05:20 140/75 (96) 95 Room Air 08/10/21 23:27 98.5 144 18 98.5 08/10/21 07:35 2.0 Physcial Exam: General: Well developed, well nourished, no acute distress, well appearing HEENT: Pupils equally round and reactive to light, EOMI, no discharge, normal conjunctiva Neck: Supple, no nuchal rigidity, no JVD, trachea midline, no tenderness Cardiac: RRR, no murmurs, no gallops, no rubs Chest/Lungs: CTAB, no wheeze, no rhonchi, no crackles Abdomen: soft, non-distended, no guarding, no peritoneal signs, appropriate tenderness near surgical incision sites Back: No tenderness Extremities: no edema, pulses intact, non-tender,capillary refill <3 sec bilateral upper and lower extremities, Neuro: Alert and oriented x 4, no focal deficits, normal speech Labs: Labs: Laboratory Tests Test 08/09/21 11:00 08/10/21 06:50 08/10/21 16:52 08/11/21 03:20 POC SARS CoV-2 Antigen Negative (NEGATIVE) White Blood Count 7.4 x10^3/uL (4.0-11.0) 8.0 x10^3/uL (4.0-11.0) Red Blood Count 3.03 x10^6/uL (3.50-5.40) 2.98 x10^6/uL (3.50-5.40) Hemoglobin 10.3 g/dL (12.0-15.5) 10.3 g/dL (12.0-15.5) Hematocrit 30.2 % (36.0-47.0) 29.3 % (36.0-47.0) Mean Corpuscular Volume 100 fL (79-100) 98 fL (79-100) Mean Corpuscular Hemoglobin 34 pg (25-35) 35 pg (25-35) Mean Corpuscular Hemoglobin Concent 34 g/dL (31-37) 35 g/dL (31-37) Red Cell Distribution Width 13.8 % (11.5-14.5) 13.6 % (11.5-14.5) Platelet Count 114 x10^3/uL (140-400) 139 x10^3/uL (140-400) Neutrophils (%) (Auto) 73 % (31-73) 73 % (31-73) Lymphocytes (%) (Auto) 16 % (24-48) 14 % (24-48) Monocytes (%) (Auto) 10 % (0-9) 11 % (0-9) Eosinophils (%) (Auto) 1 % (0-3) 1 % (0-3) Basophils (%) (Auto) 0 % (0-3) 0 % (0-3) Neutrophils # (Auto) 5.4 x10^3/uL (1.8-7.7) 5.8 x10^3/uL (1.8-7.7) Lymphocytes # (Auto) 1.2 x10^3/uL (1.0-4.8) 1.2 x10^3/uL (1.0-4.8) Monocytes # (Auto) 0.8 x10^3/uL (0.0-1.1) 0.9 x10^3/uL (0.0-1.1) Eosinophils # (Auto) 0.1 x10^3/uL (0.0-0.7) 0.1 x10^3/uL (0.0-0.7) Basophils # (Auto) 0.0 x10^3/uL (0.0-0.2) 0.0 x10^3/uL (0.0-0.2) Sodium Level 133 mmol/L (136-145) 131 mmol/L (136-145) Potassium Level 2.6 mmol/L (3.5-5.1) 2.5 mmol/L (3.5-5.1) Chloride Level 92 mmol/L (98-107) 92 mmol/L (98-107) Carbon Dioxide Level 28 mmol/L (21-32) 28 mmol/L (21-32) Anion Gap 13 (6-14) 11 (6-14) Blood Urea Nitrogen 6 mg/dL (7-20) 8 mg/dL (7-20) Creatinine 2.2 mg/dL (0.6-1.0) 1.6 mg/dL (0.6-1.0) Estimated GFR (Cockcroft-Gault) 23.1 33.3 Glucose Level 106 mg/dL (70-99) 108 mg/dL (70-99) Calcium Level 6.1 mg/dL (8.5-10.1) 5.8 mg/dL (8.5-10.1) Total Bilirubin 2.4 mg/dL (0.2-1.0) 2.6 mg/dL (0.2-1.0) Direct Bilirubin 1.6 mg/dL (0.0-0.2) Aspartate Amino Transf (AST/SGOT) 141 U/L (15-37) 130 U/L (15-37) Alanine Aminotransferase (ALT/SGPT) 51 U/L (14-59) 48 U/L (14-59) Alkaline Phosphatase 68 U/L (46-116) 74 U/L (46-116) Total Protein 5.5 g/dL (6.4-8.2) 5.5 g/dL (6.4-8.2) Albumin 2.1 g/dL (3.4-5.0) 2.1 g/dL (3.4-5.0) Hepatitis A IgM Antibody Nonreactive (Nonreactive) Hepatitis B Surface Antigen Nonreactive (Nonreactive) Hepatitis B Core IgM Antibody Nonreactive (Nonreactive) Hepatitis C IgG Antibody Nonreactive (Nonreactive) Prothrombin Time 16.4 SEC (11.7-14.0) Prothromb Time International Ratio 1.4 (0.8-1.1) Iron Level 35 ug/dL (50-170) Total Iron Binding Capacity 125 ug/dL (250-450) Iron Saturation 28 % (15-34) Vitamin B12 Level 1044 pg/mL (247-911) BUN/Creatinine Ratio 5 (6-20) Albumin/Globulin Ratio 0.6 (1.0-1.7) Test 08/11/21 06:00 Ionized Calcium 0.75 mmol/L (1.13-1.32) Laboratory Tests Test 08/10/21 16:52 08/11/21 03:20 08/11/21 06:00 Prothrombin Time 16.4 SEC (11.7-14.0) Prothromb Time International Ratio 1.4 (0.8-1.1) Iron Level 35 ug/dL (50-170) Total Iron Binding Capacity 125 ug/dL (250-450) Iron Saturation 28 % (15-34) Vitamin B12 Level 1044 pg/mL (247-911) White Blood Count 8.0 x10^3/uL (4.0-11.0) Red Blood Count 2.98 x10^6/uL (3.50-5.40) Hemoglobin 10.3 g/dL (12.0-15.5) Hematocrit 29.3 % (36.0-47.0) Mean Corpuscular Volume 98 fL (79-100) Mean Corpuscular Hemoglobin 35 pg (25-35) Mean Corpuscular Hemoglobin Concent 35 g/dL (31-37) Red Cell Distribution Width 13.6 % (11.5-14.5) Platelet Count 139 x10^3/uL (140-400) Neutrophils (%) (Auto) 73 % (31-73) Lymphocytes (%) (Auto) 14 % (24-48) Monocytes (%) (Auto) 11 % (0-9) Eosinophils (%) (Auto) 1 % (0-3) Basophils (%) (Auto) 0 % (0-3) Neutrophils # (Auto) 5.8 x10^3/uL (1.8-7.7) Lymphocytes # (Auto) 1.2 x10^3/uL (1.0-4.8) Monocytes # (Auto) 0.9 x10^3/uL (0.0-1.1) Eosinophils # (Auto) 0.1 x10^3/uL (0.0-0.7) Basophils # (Auto) 0.0 x10^3/uL (0.0-0.2) Sodium Level 131 mmol/L (136-145) Potassium Level 2.5 mmol/L (3.5-5.1) Chloride Level 92 mmol/L (98-107) Carbon Dioxide Level 28 mmol/L (21-32) Anion Gap 11 (6-14) Blood Urea Nitrogen 8 mg/dL (7-20) Creatinine 1.6 mg/dL (0.6-1.0) Estimated GFR (Cockcroft-Gault) 33.3 BUN/Creatinine Ratio 5 (6-20) Glucose Level 108 mg/dL (70-99) Calcium Level 5.8 mg/dL (8.5-10.1) Total Bilirubin 2.6 mg/dL (0.2-1.0) Aspartate Amino Transf (AST/SGOT) 130 U/L (15-37) Alanine Aminotransferase (ALT/SGPT) 48 U/L (14-59) Alkaline Phosphatase 74 U/L (46-116) Total Protein 5.5 g/dL (6.4-8.2) Albumin 2.1 g/dL (3.4-5.0) Albumin/Globulin Ratio 0.6 (1.0-1.7) Ionized Calcium 0.75 mmol/L (1.13-1.32) Images: Images PROCEDURE: CT HEAD WO CONTRAST CT scan of the head without contrast 08/10/2021 Clinical History: Seizure. Technique: Unenhanced, contiguous, 5 mm axial sections were obtained through the head. One or more of the following individualized dose reduction techniques were utilized for this study: 1. Automated exposure control. 2. Adjustment of the mA and/or kV according to patient size. 3. Use of iterative reconstruction technique. Findings: There is generalized parenchymal atrophy. No acute parenchymal abnormality is seen. No extra-axial fluid collection is noted. No skull fracture is seen. Impression: No acute intracranial abnormality is seen. Assessment/Plan Assessment/Plan Acute cholecystitis status post laparoscopic cholecystectomy 08/10/2021 Acute electrolyte derangementhypokalemia, hypocalcemia, hyponatremia, hypochloremia suggestive of volume depletion ROSANNA due to vasomotor nephropathy Acute seizures EtOH withdrawal Macrocytic anemia concerning for B12/folate deficiency Thrombocytopenia concerning for elemental deficiency as mentioned above History of alcohol abuse History of diabetes mellitus History of hypertension Admit to hospitalist service for further management Neurology evaluation for seizures Appreciate GI recommendations for nausea vomiting in the postoperative period PO and IV electrolyte replacement as needed Ativan as needed for seizures Continue CIWA protocol Strict I's/O Monitor urine output and continue IV fluids Avoid obvious nephrotoxic agents such as ibuprofen and additional contrast/dye R ISS and Accu-Cheks Pending B12 levels SCD for DVT prophylaxis Protonix GI prophylaxis ADA diet CODE STATUS full Discussed with RN and SW Disposition inpatient management as above DPOA: Justifications for Admission Other Justification EDEL FLEMING MD August 11, 2021 07:27
[2021-08-11] MEDS ORDERED: POTASSIUM CHLORIDE 20 MEQ TABLET.ER. PO ONE (08:00)
--- NOTE | 2021-08-11 08:47 | RAD ---
EXAM: Abdomen, single view. HISTORY: Pain and bloating. COMPARISON: None. FINDINGS: A frontal view of the abdomen is obtained. There are nonspecific air-filled loops of small bowel and there is gas and contrast within the colon. There is a prominent air and contrast filled ce cum. There are cholecystectomy clips. IMPRESSION: Prominent air and contrast-filled:. This is not clearly within limits to suggest obstruct ion or ileus. Electronically signed by: Opal Akins MD (08/11/2021 8:45 AM) [id number]
[2021-08-11] MEDS ORDERED: MULTIVIT INFUSN,ADULT 4,VIT K 10 ML, THIAMINE INJ 100 MG, FOLIC ACID INJ 1 MG in IV NOR... IV SCH (09:00)
--- NOTE | 2021-08-11 09:38 | PDOC ---
Date of Service: DATE: 08/11/21 TIME: 09:33 Objective: Objective: Reviewed chart - seizure overnight, requests for IV pain meds. HIDA ordered yesterday r/o bile leak after d/w Dr. Martinez - not done yet. Now on withdrawal precautions. Vital Signs: Vital Signs Date Time Temp Pulse Resp B/P (MAP) Pulse Ox O2 Delivery O2 Flow Rate FiO2 08/11/21 07:00 73 18 153/93 (113) 97 Room Air 08/10/21 23:27 98.5 98.5 08/10/21 07:35 2.0 Labs: Laboratory Tests Test 08/10/21 16:52 08/11/21 03:20 08/11/21 06:00 Prothrombin Time 16.4 SEC Prothromb Time International Ratio 1.4 Iron Level 35 ug/dL Total Iron Binding Capacity 125 ug/dL Iron Saturation 28 % Vitamin B12 Level 1044 pg/mL White Blood Count 8.0 x10^3/uL Red Blood Count 2.98 x10^6/uL Hemoglobin 10.3 g/dL Hematocrit 29.3 % Mean Corpuscular Volume 98 fL Mean Corpuscular Hemoglobin 35 pg Mean Corpuscular Hemoglobin Concent 35 g/dL Red Cell Distribution Width 13.6 % Platelet Count 139 x10^3/uL Neutrophils (%) (Auto) 73 % Lymphocytes (%) (Auto) 14 % Monocytes (%) (Auto) 11 % Eosinophils (%) (Auto) 1 % Basophils (%) (Auto) 0 % Neutrophils # (Auto) 5.8 x10^3/uL Lymphocytes # (Auto) 1.2 x10^3/uL Monocytes # (Auto) 0.9 x10^3/uL Eosinophils # (Auto) 0.1 x10^3/uL Basophils # (Auto) 0.0 x10^3/uL Sodium Level 131 mmol/L Potassium Level 2.5 mmol/L Chloride Level 92 mmol/L Carbon Dioxide Level 28 mmol/L Anion Gap 11 Blood Urea Nitrogen 8 mg/dL Creatinine 1.6 mg/dL Estimated GFR (Cockcroft-Gault) 33.3 BUN/Creatinine Ratio 5 Glucose Level 108 mg/dL Calcium Level 5.8 mg/dL Total Bilirubin 2.6 mg/dL Aspartate Amino Transf (AST/SGOT) 130 U/L Alanine Aminotransferase (ALT/SGPT) 48 U/L Alkaline Phosphatase 74 U/L Total Protein 5.5 g/dL Albumin 2.1 g/dL Albumin/Globulin Ratio 0.6 Ionized Calcium 0.75 mmol/L Imaging: KUB 08/10 IMPRESSION: Prominent air and contrast-filled:. This is not clearly within limits to suggest obstruction or ileus. Head CT 08/11 Impression: No acute intracranial abnormality is seen. PE: out of room A/P: S/p cholecystectomy and liver biopsy, seizure Upper abdominal discomfort, bloating, nausea ACD, thrombocytopenia, coagulopathy, alcoholic hepatitis/liver disease Hypokalemia, ROSANNA, hypocalcemia GERD -- Await pending data, address electrolyte issues and withdrawal. Justicifation of Admission Dx: Justifications for Admission: Justification of Admission Dx: N/A EREN STOVALL August 11, 2021 09:38
--- NOTE | 2021-08-11 10:07 | PDOC ---
SURGICAL PROGRESS NOTE DATE: 08/11/21 TIME: 10:05 Subjective back from [facility] some pain, although improved from yesterday taking clears Vital Signs Vital Signs Date Time Temp Pulse Resp B/P (MAP) Pulse Ox O2 Delivery O2 Flow Rate FiO2 08/11/21 07:00 73 18 153/93 (113) 97 Room Air 08/10/21 23:27 98.5 98.5 08/10/21 07:35 2.0 I&O Intake and Output 08/11/21 07:00 Intake Total 800 ml Output Total 1 ml Balance 799 ml Intake Oral 800 ml Output Urine Total 1 ml General: Cooperative, No acute distress Abdomen: Soft, Other (mildly distended , lap dressings dry) Labs Laboratory Tests Test 08/09/21 11:00 08/10/21 06:50 08/10/21 16:52 08/11/21 03:20 POC SARS CoV-2 Antigen Negative (NEGATIVE) White Blood Count 7.4 x10^3/uL (4.0-11.0) 8.0 x10^3/uL (4.0-11.0) Red Blood Count 3.03 x10^6/uL (3.50-5.40) 2.98 x10^6/uL (3.50-5.40) Hemoglobin 10.3 g/dL (12.0-15.5) 10.3 g/dL (12.0-15.5) Hematocrit 30.2 % (36.0-47.0) 29.3 % (36.0-47.0) Mean Corpuscular Volume 100 fL (79-100) 98 fL (79-100) Mean Corpuscular Hemoglobin 34 pg (25-35) 35 pg (25-35) Mean Corpuscular Hemoglobin Concent 34 g/dL (31-37) 35 g/dL (31-37) Red Cell Distribution Width 13.8 % (11.5-14.5) 13.6 % (11.5-14.5) Platelet Count 114 x10^3/uL (140-400) 139 x10^3/uL (140-400) Neutrophils (%) (Auto) 73 % (31-73) 73 % (31-73) Lymphocytes (%) (Auto) 16 % (24-48) 14 % (24-48) Monocytes (%) (Auto) 10 % (0-9) 11 % (0-9) Eosinophils (%) (Auto) 1 % (0-3) 1 % (0-3) Basophils (%) (Auto) 0 % (0-3) 0 % (0-3) Neutrophils # (Auto) 5.4 x10^3/uL (1.8-7.7) 5.8 x10^3/uL (1.8-7.7) Lymphocytes # (Auto) 1.2 x10^3/uL (1.0-4.8) 1.2 x10^3/uL (1.0-4.8) Monocytes # (Auto) 0.8 x10^3/uL (0.0-1.1) 0.9 x10^3/uL (0.0-1.1) Eosinophils # (Auto) 0.1 x10^3/uL (0.0-0.7) 0.1 x10^3/uL (0.0-0.7) Basophils # (Auto) 0.0 x10^3/uL (0.0-0.2) 0.0 x10^3/uL (0.0-0.2) Sodium Level 133 mmol/L (136-145) 131 mmol/L (136-145) Potassium Level 2.6 mmol/L (3.5-5.1) 2.5 mmol/L (3.5-5.1) Chloride Level 92 mmol/L (98-107) 92 mmol/L (98-107) Carbon Dioxide Level 28 mmol/L (21-32) 28 mmol/L (21-32) Anion Gap 13 (6-14) 11 (6-14) Blood Urea Nitrogen 6 mg/dL (7-20) 8 mg/dL (7-20) Creatinine 2.2 mg/dL (0.6-1.0) 1.6 mg/dL (0.6-1.0) Estimated GFR (Cockcroft-Gault) 23.1 33.3 Glucose Level 106 mg/dL (70-99) 108 mg/dL (70-99) Calcium Level 6.1 mg/dL (8.5-10.1) 5.8 mg/dL (8.5-10.1) Total Bilirubin 2.4 mg/dL (0.2-1.0) 2.6 mg/dL (0.2-1.0) Direct Bilirubin 1.6 mg/dL (0.0-0.2) Aspartate Amino Transf (AST/SGOT) 141 U/L (15-37) 130 U/L (15-37) Alanine Aminotransferase (ALT/SGPT) 51 U/L (14-59) 48 U/L (14-59) Alkaline Phosphatase 68 U/L (46-116) 74 U/L (46-116) Total Protein 5.5 g/dL (6.4-8.2) 5.5 g/dL (6.4-8.2) Albumin 2.1 g/dL (3.4-5.0) 2.1 g/dL (3.4-5.0) Hepatitis A IgM Antibody Nonreactive (Nonreactive) Hepatitis B Surface Antigen Nonreactive (Nonreactive) Hepatitis B Core IgM Antibody Nonreactive (Nonreactive) Hepatitis C IgG Antibody Nonreactive (Nonreactive) Prothrombin Time 16.4 SEC (11.7-14.0) Prothromb Time International Ratio 1.4 (0.8-1.1) Iron Level 35 ug/dL (50-170) Total Iron Binding Capacity 125 ug/dL (250-450) Iron Saturation 28 % (15-34) Vitamin B12 Level 1044 pg/mL (247-911) BUN/Creatinine Ratio 5 (6-20) Albumin/Globulin Ratio 0.6 (1.0-1.7) Test 08/11/21 06:00 Ionized Calcium 0.75 mmol/L (1.13-1.32) Laboratory Tests Test 08/10/21 16:52 08/11/21 03:20 08/11/21 06:00 Prothrombin Time 16.4 SEC (11.7-14.0) Prothromb Time International Ratio 1.4 (0.8-1.1) Iron Level 35 ug/dL (50-170) Total Iron Binding Capacity 125 ug/dL (250-450) Iron Saturation 28 % (15-34) Vitamin B12 Level 1044 pg/mL (247-911) White Blood Count 8.0 x10^3/uL (4.0-11.0) Red Blood Count 2.98 x10^6/uL (3.50-5.40) Hemoglobin 10.3 g/dL (12.0-15.5) Hematocrit 29.3 % (36.0-47.0) Mean Corpuscular Volume 98 fL (79-100) Mean Corpuscular Hemoglobin 35 pg (25-35) Mean Corpuscular Hemoglobin Concent 35 g/dL (31-37) Red Cell Distribution Width 13.6 % (11.5-14.5) Platelet Count 139 x10^3/uL (140-400) Neutrophils (%) (Auto) 73 % (31-73) Lymphocytes (%) (Auto) 14 % (24-48) Monocytes (%) (Auto) 11 % (0-9) Eosinophils (%) (Auto) 1 % (0-3) Basophils (%) (Auto) 0 % (0-3) Neutrophils # (Auto) 5.8 x10^3/uL (1.8-7.7) Lymphocytes # (Auto) 1.2 x10^3/uL (1.0-4.8) Monocytes # (Auto) 0.9 x10^3/uL (0.0-1.1) Eosinophils # (Auto) 0.1 x10^3/uL (0.0-0.7) Basophils # (Auto) 0.0 x10^3/uL (0.0-0.2) Sodium Level 131 mmol/L (136-145) Potassium Level 2.5 mmol/L (3.5-5.1) Chloride Level 92 mmol/L (98-107) Carbon Dioxide Level 28 mmol/L (21-32) Anion Gap 11 (6-14) Blood Urea Nitrogen 8 mg/dL (7-20) Creatinine 1.6 mg/dL (0.6-1.0) Estimated GFR (Cockcroft-Gault) 33.3 BUN/Creatinine Ratio 5 (6-20) Glucose Level 108 mg/dL (70-99) Calcium Level 5.8 mg/dL (8.5-10.1) Total Bilirubin 2.6 mg/dL (0.2-1.0) Aspartate Amino Transf (AST/SGOT) 130 U/L (15-37) Alanine Aminotransferase (ALT/SGPT) 48 U/L (14-59) Alkaline Phosphatase 74 U/L (46-116) Total Protein 5.5 g/dL (6.4-8.2) Albumin 2.1 g/dL (3.4-5.0) Albumin/Globulin Ratio 0.6 (1.0-1.7) Ionized Calcium 0.75 mmol/L (1.13-1.32) Assessment/Plan await [facility] electrolyte management Justicifation of Admission Dx: Justifications for Admission: Justification of Admission Dx: N/A BEATRIZ PAN APRN August 11, 2021 10:07
[2021-08-11] MEDS: CARVEDILOL 12.5 MG TABLET. PO SCH ×2 (10:11→17:40)
[2021-08-11] MEDS: LOSARTAN POTASSIUM 25 MG TABLET. PO SCH (10:11)
[2021-08-11] MEDS: DOCUSATE SODIUM 100 MG CAPSULE. PO SCH ×2 (10:12→21:00)
--- NOTE | 2021-08-11 10:30 | RAD ---
EXAM: Nuclear hepatobiliary scan. HISTORY: Cholecystectomy. Pain. TECHNIQUE: Following intravenous administration of 5.5 mCi Tc 99m Choletec, anterior images of the ab domen were obtained at five minute intervals through one hour. FINDINGS: There is prompt radiotracer uptake by the liver. No focal defect is seen. There is normal e xcretion into the biliary tree and radiotracer transit into the small bowel. There is accumulation of a small amount of radiotracer along the inferior aspect of the left hepatic lobe on later images. IMPRESSION: Small amount of radiotracer accumulating along the inferior left hepatic lobe, suggesting reflux into the stomach or a bile leak. CT can be obtained to assess for an extraluminal fluid colle ction. Electronically signed by: Opal Akins MD (08/11/2021 10:27 AM) [id number]
[2021-08-11] MEDS: PANTOPRAZOLE IV PUSH 40 MG VIAL. IVP SCH ×2 (10:35→17:40)
[2021-08-11 12:04] LABS: CALCIUM 6.1 mg/dL (8.5-10.1); CREATININE 1.4 mg/dL (0.6-1.0); GFR 38.9
[2021-08-11 12:06] LABS: POTASSIUM 2.7 mmol/L (3.5-5.1)
--- NOTE | 2021-08-11 12:53 | PDOC2 ---
NEUROLOGY CONSULT Date of Service DOS: DATE: 08/11/21 TIME: 12:47 Reason for Consult Reason for Consult: Seizure Referring Physician Referring Physician: Dr. Louis, Dr. Forman Source Source: Chart review, Patient History of Present Illness History of Present Illness The patient is a 55-year-old right-handed female admitted on 08/09 for laparoscopic cholecystectomy and liver biopsy regarding biliary dyskinesia. She had a seizure last night. She drinks 4 ounces of gin every day. She was anxious because she was not receiving her pain medications as she wanted. She finally did get some morphine last night, she is also been using Lortab. The nurse was about to give her some lorazepam when the patient had a 45-second generalized convulsive seizure. There was postictal confusion. She did have a negative head CT. There is no prior history of stroke, seizure, or head injury. She has some occasional paresthesias in her feet Past Medical History Cardiovascular: HTN GI: Other (Biliary dyskinesia, bloating) Endocrine: Hypothyroidism Past Surgical History Past Surgical History: Cholecystectomy (This admission), , Tubal Ligation, Tonsillectomy Family History Family History: No pertinent hx (Negative for seizures) Social History Social History , alcohol history as above, smokes tobacco Current Medications Current Medications Current Medications Cefazolin Sodium/ Dextrose 50 ml @ 100 mls/hr 1X PREOP PRN IV PRIOR TO PROCEDURE Last administered on 08/09/21at 13:58; Start 08/09/21 at 06:00; Stop 08/09/21 at 18:00; Status DC Ondansetron HCl (Zofran) 4 mg 1X ONCE IM Last administered on 08/09/21at 11:45; Start 08/09/21 at 11:45; Stop 08/09/21 at 11:46; Status DC Ringer's Solution 1,000 ml @ 75 mls/hr [id number] IV Last administered on 08/10/21at 01:05; Start 08/09/21 at 11:45; Stop 08/10/21 at 19:42; Status DC Scopolamine (Transderm-Scop) 1 patch STK-MED ONCE TD ; Start 08/09/21 at 11:49; Stop 08/09/21 at 11:49; Status DC Scopolamine (Transderm-Scop) 1 patch 1X ONCE TD Last administered on 08/09/21at 12:10; Start 08/09/21 at 12:15; Stop 08/09/21 at 12:16; Status DC Cellulose (Surgicel Hemostat 2x14) 1 each STK-MED ONCE .ROUTE ; Start 08/09/21 at 13:34; Stop 08/09/21 at 13:34; Status DC Bupivacaine HCl/ Epinephrine Bitart (Sensorcain-Epi 0.5% Kit) 30 ml STK-MED ONCE .ROUTE Last administered on 08/09/21at 14:17; Start 08/09/21 at 13:34; Stop 08/09/21 at 13:35; Status DC Iohexol (Omnipaque 300 Mg/ml) 50 ml STK-MED ONCE .ROUTE Last administered on 08/09/21at 14:17; Start 08/09/21 at 13:34; Stop 08/09/21 at 13:35; Status DC Bisacodyl (Dulcolax Supp) 10 mg STK-MED ONCE .ROUTE ; Start 08/09/21 at 13:34; Stop 08/09/21 at 13:35; Status DC Lidocaine HCl (Lidocaine Pf 2% Vial) 5 ml STK-MED ONCE .ROUTE ; Start 08/09/21 at 13:36; Stop 08/09/21 at 13:36; Status DC Propofol (Diprivan) 200 mg STK-MED ONCE IV ; Start 08/09/21 at 13:36; Stop 08/09/21 at 13:36; Status DC Ondansetron HCl (Zofran) 4 mg STK-MED ONCE .ROUTE ; Start 08/09/21 at 13:36; Stop 08/09/21 at 13:36; Status DC Dexamethasone Sodium Phosphate (Decadron) 4 mg STK-MED ONCE .ROUTE ; Start 08/09/21 at 13:36; Stop 08/09/21 at 13:36; Status DC Sevoflurane (Ultane) 60 ml STK-MED ONCE IH ; Start 08/09/21 at 13:36; Stop 08/09/21 at 13:36; Status DC Fentanyl Citrate (Fentanyl 2ml Vial) 100 mcg STK-MED ONCE .ROUTE ; Start 08/09/21 at 13:36; Stop 08/09/21 at 13:36; Status DC Rocuronium [place] (Zemuron) 50 mg STK-MED ONCE .ROUTE ; Start 08/09/21 at 13:38; Stop 08/09/21 at 13:38; Status DC Heparin Sodium (Porcine) 1000 unit/Sodium Chloride 1,001 ml @ 1,001 mls/hr 1X ONCE IRR Last administered on 08/09/21at 14:29; Start 08/09/21 at 14:00; Stop 08/09/21 at 14:59; Status DC Neostigmine [place] (Neostigmine Methylsulfate) 5 mg STK-MED ONCE .ROUTE ; Start 08/09/21 at 13:39; Stop 08/09/21 at 13:39; Status DC Hydromorphone HCl (Dilaudid) 2 mg STK-MED ONCE .ROUTE ; Start 08/09/21 at 14:20; Stop 08/09/21 at 14:20; Status DC Propofol (Diprivan) 200 mg STK-MED ONCE IV ; Start 08/09/21 at 14:27; Stop 08/09/21 at 14:28; Status DC Phenylephrine HCl (PHENYLEPHRINE in 0.9% NACL PF) 1 mg STK-MED ONCE IV ; Start 08/09/21 at 14:44; Stop 08/09/21 at 14:44; Status DC Ephedrine Sulfate (ePHEDrine PF IN SALINE SYRINGE) 50 mg STK-MED ONCE IV ; Start 08/09/21 at 14:56; Stop 08/09/21 at 14:56; Status DC Sodium Chloride (Normal Saline Flush) 3 ml QSHIFT PRN IV AFTER MEDS AND BLOOD DRAWS; Start 08/09/21 at 16:00 Ringer's Solution 1,000 ml @ 100 mls/hr Q10H IV Last administered on 08/11/21at 03:52; Start 08/09/21 at 16:00 Dextrose (Dextrose 50%-Water Syringe) 12.5 gm PRN Q15MIN PRN IV SEE COMMENTS; Start 08/09/21 at 16:00 Acetaminophen/ Hydrocodone Bitart (Lortab 5/325) 1 tab PRN Q4HRS PRN PO MILD PAIN 1-3 Last administered on 08/10/21at 01:09; Start 08/09/21 at 16:00 Naloxone HCl (Narcan) 0.4 mg PRN Q2MIN PRN IV SEE INSTRUCTIONS; Start 08/09/21 at 16:00 Sodium Chloride 1,000 ml @ 25 mls/hr Q24H IV ; Start 08/09/21 at 16:00 Morphine Sulfate (Morphine Sulfate) 1 mg PRN Q1HR PRN IV PAIN-SEE COMMENTS Last administered on 08/10/21at 20:34; Start 08/09/21 at 16:00 Docusate Sodium (Colace) 100 mg BID PO Last administered on 08/11/21at 10:12; Start 08/09/21 at 21:00 Ondansetron HCl (Zofran) 4 mg PRN Q6HRS PRN IVP NAUESA, 1ST CHOICE Last administered on 08/10/21at 20:33; Start 08/09/21 at 16:00 Prochlorperazine Edisylate (Compazine) 5 mg PRN Q10MIN PRN IV NAUSEA Last administered on 08/09/21at 16:38; Start 08/09/21 at 16:45 Prochlorperazine Edisylate (Compazine) 10 mg STK-MED ONCE .ROUTE ; Start 08/09/21 at 16:35; Stop 08/09/21 at 16:35; Status DC Levothyroxine Sodium (Synthroid) 100 mcg DAILY06 PO Last administered on 08/11/21at 06:20; Start 08/10/21 at 06:00 Losartan Potassium (Cozaar) 25 mg DAILY PO Last administered on 08/11/21at 10:11; Start 08/10/21 at 09:00 Carvedilol (Coreg) 25 mg BIDWMEALS PO Last administered on 08/11/21at 10:11; Start 08/09/21 at 22:00 Zolpidem Tartrate (Ambien) 5 mg PRN QHS PRN PO INSOMNIA, MAY REPEAT X1 Last administered on 08/09/21at 21:25; Start 08/09/21 at 21:15 Info (Non-Icu Electrolyte Protocol) 1 ea CONT PRN PRN MC PER PROTOCOL; Start 08/10/21 at 07:45 Potassium Chloride/Water 100 ml @ 100 mls/hr Q1H IV Last administered on 08/10/21at 14:30; Start 08/10/21 at 09:00; Stop 08/10/21 at 12:59; Status DC Potassium Chloride (Klor-Con) 40 meq 1X ONCE PO ; Start 08/10/21 at 07:45; Stop 08/10/21 at 07:46; Status UNV Potassium Chloride/Water 100 ml @ 100 mls/hr Q1H IV ; Start 08/10/21 at 07:45; Stop 08/10/21 at 11:44; Status UNV Potassium Chloride (Klor-Con) 40 meq Q4H PO ; Start 08/10/21 at 07:45; Stop 08/10/21 at 11:46; Status UNV Potassium Chloride/Water 100 ml @ 100 mls/hr Q1H IV ; Start 08/10/21 at 07:45; Stop 08/10/21 at 11:44; Status UNV Pantoprazole Sodium (PROTONIX VIAL for IV PUSH) 40 mg BIDAC IVP Last administered on 08/11/21at 10:35; Start 08/10/21 at 16:30 Multivitamins 10 ml/Thiamine HCl 100 mg/Folic Acid 1 mg/Sodium Chloride 1,011.2 ml @ 100 mls/ hr DAILY IV Last administered on 08/11/21at 10:34; Start 08/11/21 at 09:00; Stop 08/11/21 at 12:18; Status DC Multivitamins (Thera M Plus) 1 tab DAILY PO ; Start 08/16/21 at 09:00 Folic Acid (Folic Acid) 1 mg DAILY PO ; Start 08/16/21 at 09:00 Thiamine Mononitrate (Vitamin B-1) 100 mg DAILY PO ; Start 08/16/21 at 09:00 Chlordiazepoxide (Librium) 50 mg PRN Q1HR PRN PO For CIWA 8-14; Start 08/10/21 at 23:15 Chlordiazepoxide (Librium) 100 mg PRN Q1HR PRN PO For CIWA 15 or greater; Start 08/10/21 at 23:15 Lorazepam (Ativan) 4 mg PRN Q1HR PRN PO For CIWA 8-14; Start 08/10/21 at 23:15 Lorazepam (Ativan) 8 mg PRN Q1HR PRN PO For CIWA 15 or greater; Start 08/10/21 at 23:15 Lorazepam (Ativan Inj) 2 mg PRN Q1HR PRN IV For CIWA 8-14 Last administered on 08/11/21at 10:38; Start 08/10/21 at 23:15 Lorazepam (Ativan Inj) 4 mg PRN Q1HR PRN IV For CIWA 15 or greater Last administered on 08/10/21at 23:23; Start 08/10/21 at 23:15 Haloperidol Lactate (Haldol Inj) 5 mg PRN Q4HRS PRN IVP Hallucinatns,Confusn,Delirium; Start 08/10/21 at 23:15 Diphenhydramine HCl (Benadryl) 25 mg PRN Q15MIN PRN IVP EPS symptoms 2'Haldol admin; Start 08/10/21 at 23:15 Lorazepam (Ativan Inj) 2 mg PRN Q15MIN PRN IV SEE COMMENTS; Start 08/10/21 at 23:15; Stop 08/11/21 at 01:05; Status DC Lorazepam (Ativan Inj) 4 mg PRN Q15MIN PRN IV SEE COMMENTS; Start 08/10/21 at 23:15; Stop 08/11/21 at 01:06; Status DC Potassium Chloride/Water 100 ml @ 100 mls/hr Q1H IV Last administered on 08/11/21at 12:26; Start 08/11/21 at 06:00; Stop 08/11/21 at 13:59 Potassium Chloride (Klor-Con) 40 meq 1X ONCE PO Last administered on 08/11/21at 10:10; Start 08/11/21 at 08:00; Stop 08/11/21 at 08:01; Status DC Calcium Gluconate (Calcium Gluconate) 1,000 mg 1X ONCE IVP Last administered on 08/11/21at 06:22; Start 08/11/21 at 05:45; Stop 08/11/21 at 05:51; Status DC Potassium Chloride (Klor-Con) 40 meq BID PO ; Start 08/11/21 at 21:00; Stop 08/12/21 at 20:59 Active Scripts Active Reported Losartan Potassium 50 Mg Tablet 25 Mg PO DAILY Levothyroxine Sodium 100 Mcg Tablet 100 Mcg PO DAILYAC Ondansetron Hcl 4 Mg Tablet 4 Mg PO PRN BID PRN Nexium Capsule (Esomeprazole Magnesium) 20 Mg Capsule.dr 20 Mg PO DAILYAC Ambien (Zolpidem Tartrate) 10 Mg Tablet 10 Mg PO PRN QHS PRN Carvedilol 25 Mg Tablet 25 Mg PO BIDWMEALS Allergies Allergies: Coded Allergies: Sulfa (Sulfonamide Antibiotics) (Verified Adverse Reaction, Intermediate, Rash, 08/09/21) ROS Review of System Negative for fever, chills, weight loss, shortness of breath, chest pain, indigestion, hematochezia, melena, and dysuria. Full 14-point review of systems is negative. Physical Exam Physical Examination General: Well-developed, well-nourished white female in no acute distress. Notable abdominal bloating. Icterus HEENT: Normocephalic andatraumatic. Temporal arteriespulsatile and nontender. Neck: Supple without bruit, no meningismus Musculoskeletal: Stability:see neurologic. Gait exam:see neurologic. Tone:see neurologic.St rength:see neurologic. Neurological: Mental Status:intact, orientation, memory, attention span/concentration, language, fund of knowledge normal. Not tremulous or diaphoretic. Cranial Nerves:Pupils equal and reactive to light, extraocular movements areintact, visual gorman are full to confrontation. Facial sensation is normal. There is no facial asymmetry. Vestibulo-ocular reflex is intact. Palate elevates and tongue protrudes in midline. All other cranial related problems are negative except as mentioned before.Reflexes:2+ and symmetric with flexor plantar responses. Motor:5/5 strength with normal tone and bulk. Coordination:Finger-nose finger and [id number] testing are normal. Rapid alternating movements and fine finger movements are intact. Gait:Not tested. Sensory:Normal pinprick, vibration, light touch, proprioception. Vitals VITALS Vital Signs Date Time Temp Pulse Resp B/P (MAP) Pulse Ox O2 Delivery O2 Flow Rate FiO2 08/11/21 11:00 70 18 111/67 (82) 97 Room Air 08/10/21 23:27 98.5 98.5 08/10/21 07:35 2.0 Labs Labs Laboratory Tests Test 08/10/21 06:50 08/10/21 16:52 08/11/21 03:20 08/11/21 06:00 White Blood Count 7.4 x10^3/uL (4.0-11.0) 8.0 x10^3/uL (4.0-11.0) Red Blood Count 3.03 x10^6/uL (3.50-5.40) 2.98 x10^6/uL (3.50-5.40) Hemoglobin 10.3 g/dL (12.0-15.5) 10.3 g/dL (12.0-15.5) Hematocrit 30.2 % (36.0-47.0) 29.3 % (36.0-47.0) Mean Corpuscular Volume 100 fL (79-100) 98 fL (79-100) Mean Corpuscular Hemoglobin 34 pg (25-35) 35 pg (25-35) Mean Corpuscular Hemoglobin Concent 34 g/dL (31-37) 35 g/dL (31-37) Red Cell Distribution Width 13.8 % (11.5-14.5) 13.6 % (11.5-14.5) Platelet Count 114 x10^3/uL (140-400) 139 x10^3/uL (140-400) Neutrophils (%) (Auto) 73 % (31-73) 73 % (31-73) Lymphocytes (%) (Auto) 16 % (24-48) 14 % (24-48) Monocytes (%) (Auto) 10 % (0-9) 11 % (0-9) Eosinophils (%) (Auto) 1 % (0-3) 1 % (0-3) Basophils (%) (Auto) 0 % (0-3) 0 % (0-3) Neutrophils # (Auto) 5.4 x10^3/uL (1.8-7.7) 5.8 x10^3/uL (1.8-7.7) Lymphocytes # (Auto) 1.2 x10^3/uL (1.0-4.8) 1.2 x10^3/uL (1.0-4.8) Monocytes # (Auto) 0.8 x10^3/uL (0.0-1.1) 0.9 x10^3/uL (0.0-1.1) Eosinophils # (Auto) 0.1 x10^3/uL (0.0-0.7) 0.1 x10^3/uL (0.0-0.7) Basophils # (Auto) 0.0 x10^3/uL (0.0-0.2) 0.0 x10^3/uL (0.0-0.2) Sodium Level 133 mmol/L (136-145) 131 mmol/L (136-145) Potassium Level 2.6 mmol/L (3.5-5.1) 2.5 mmol/L (3.5-5.1) Chloride Level 92 mmol/L (98-107) 92 mmol/L (98-107) Carbon Dioxide Level 28 mmol/L (21-32) 28 mmol/L (21-32) Anion Gap 13 (6-14) 11 (6-14) Blood Urea Nitrogen 6 mg/dL (7-20) 8 mg/dL (7-20) Creatinine 2.2 mg/dL (0.6-1.0) 1.6 mg/dL (0.6-1.0) Estimated GFR (Cockcroft-Gault) 23.1 33.3 Glucose Level 106 mg/dL (70-99) 108 mg/dL (70-99) Calcium Level 6.1 mg/dL (8.5-10.1) 5.8 mg/dL (8.5-10.1) Total Bilirubin 2.4 mg/dL (0.2-1.0) 2.6 mg/dL (0.2-1.0) Direct Bilirubin 1.6 mg/dL (0.0-0.2) Aspartate Amino Transf (AST/SGOT) 141 U/L (15-37) 130 U/L (15-37) Alanine Aminotransferase (ALT/SGPT) 51 U/L (14-59) 48 U/L (14-59) Alkaline Phosphatase 68 U/L (46-116) 74 U/L (46-116) Total Protein 5.5 g/dL (6.4-8.2) 5.5 g/dL (6.4-8.2) Albumin 2.1 g/dL (3.4-5.0) 2.1 g/dL (3.4-5.0) Hepatitis A IgM Antibody Nonreactive (Nonreactive) Hepatitis B Surface Antigen Nonreactive (Nonreactive) Hepatitis B Core IgM Antibody Nonreactive (Nonreactive) Hepatitis C IgG Antibody Nonreactive (Nonreactive) Prothrombin Time 16.4 SEC (11.7-14.0) Prothromb Time International Ratio 1.4 (0.8-1.1) Iron Level 35 ug/dL (50-170) Total Iron Binding Capacity 125 ug/dL (250-450) Iron Saturation 28 % (15-34) Vitamin B12 Level 1044 pg/mL (813-911) BUN/Creatinine Ratio 5 (6-20) Magnesium Level 0.6 mg/dL (1.8-2.4) Albumin/Globulin Ratio 0.6 (1.0-1.7) Ionized Calcium 0.75 mmol/L (1.13-1.32) Test 08/11/21 11:25 Sodium Level 129 mmol/L (136-145) Potassium Level 2.7 mmol/L (3.5-5.1) Chloride Level 93 mmol/L (98-107) Carbon Dioxide Level 24 mmol/L (21-32) Anion Gap 12 (6-14) Blood Urea Nitrogen 7 mg/dL (7-20) Creatinine 1.4 mg/dL (0.6-1.0) Estimated GFR (Cockcroft-Gault) 38.9 Glucose Level 124 mg/dL (70-99) Calcium Level 6.1 mg/dL (8.5-10.1) Laboratory Tests Test 08/10/21 16:52 08/11/21 03:20 08/11/21 06:00 08/11/21 11:25 Prothrombin Time 16.4 SEC (11.7-14.0) Prothromb Time International Ratio 1.4 (0.8-1.1) Iron Level 35 ug/dL (50-170) Total Iron Binding Capacity 125 ug/dL (250-450) Iron Saturation 28 % (15-34) Vitamin B12 Level 1044 pg/mL (755-911) White Blood Count 8.0 x10^3/uL (4.0-11.0) Red Blood Count 2.98 x10^6/uL (3.50-5.40) Hemoglobin 10.3 g/dL (12.0-15.5) Hematocrit 29.3 % (36.0-47.0) Mean Corpuscular Volume 98 fL (79-100) Mean Corpuscular Hemoglobin 35 pg (25-35) Mean Corpuscular Hemoglobin Concent 35 g/dL (31-37) Red Cell Distribution Width 13.6 % (11.5-14.5) Platelet Count 139 x10^3/uL (140-400) Neutrophils (%) (Auto) 73 % (31-73) Lymphocytes (%) (Auto) 14 % (24-48) Monocytes (%) (Auto) 11 % (0-9) Eosinophils (%) (Auto) 1 % (0-3) Basophils (%) (Auto) 0 % (0-3) Neutrophils # (Auto) 5.8 x10^3/uL (1.8-7.7) Lymphocytes # (Auto) 1.2 x10^3/uL (1.0-4.8) Monocytes # (Auto) 0.9 x10^3/uL (0.0-1.1) Eosinophils # (Auto) 0.1 x10^3/uL (0.0-0.7) Basophils # (Auto) 0.0 x10^3/uL (0.0-0.2) Sodium Level 131 mmol/L (136-145) 129 mmol/L (136-145) Potassium Level 2.5 mmol/L (3.5-5.1) 2.7 mmol/L (3.5-5.1) Chloride Level 92 mmol/L (98-107) 93 mmol/L (98-107) Carbon Dioxide Level 28 mmol/L (21-32) 24 mmol/L (21-32) Anion Gap 11 (6-14) 12 (6-14) Blood Urea Nitrogen 8 mg/dL (7-20) 7 mg/dL (7-20) Creatinine 1.6 mg/dL (0.6-1.0) 1.4 mg/dL (0.6-1.0) Estimated GFR (Cockcroft-Gault) 33.3 38.9 BUN/Creatinine Ratio 5 (6-20) Glucose Level 108 mg/dL (70-99) 124 mg/dL (70-99) Calcium Level 5.8 mg/dL (8.5-10.1) 6.1 mg/dL (8.5-10.1) Magnesium Level 0.6 mg/dL (1.8-2.4) Total Bilirubin 2.6 mg/dL (0.2-1.0) Aspartate Amino Transf (AST/SGOT) 130 U/L (15-37) Alanine Aminotransferase (ALT/SGPT) 48 U/L (14-59) Alkaline Phosphatase 74 U/L (46-116) Total Protein 5.5 g/dL (6.4-8.2) Albumin 2.1 g/dL (3.4-5.0) Albumin/Globulin Ratio 0.6 (1.0-1.7) Ionized Calcium 0.75 mmol/L (1.13-1.32) Images Images CT scan of the head without contrast 08/10/2021 Clinical History: Seizure. Technique: Unenhanced, contiguous, 5 mm axial sections were obtained through the head. One or more of the following individualized dose reduction techniques were utilized for this study: 1. Automated exposure control. 2. Adjustment of the mA and/or kV according to patient size. 3. Use of iterative reconstruction technique. Findings: There is generalized parenchymal atrophy. No acute parenchymal abnormality is seen. No extra-axial fluid collection is noted. No skull fracture is seen. Impression: No acute intracranial abnormality is seen. Assessment/Plan Assessment/Plan Impression: Alcohol withdrawal seizures, narcotics and recent surgery also lower the seizure threshold. Liver disease, work-up in progress, severe abdominal bloating, is this ascites? Symptoms of peripheral neuropathy, bedside examination unremarkable Recommendations: MRI of the brain [facility] protocol Hold on electroencephalogram Hold on anticonvulsants, discussed risk, benefits, alternatives. Patient understands that she cannot drive until she has gone 6 months without a seizure. Work-up for liver disease in progress Thank you for letting me help with the patient's care. DIXIE JARRETT MD August 11, 2021 12:53
--- NOTE | 2021-08-11 15:00 | RAD ---
Study: CT abdomen/pelvis without intravenous contrast Indication: Possible bile leak. Recent cholecystectomy. Comparison: Correlation is made to a HIDA scan also performed on 08/11/2021 Technique: Helical CT imaging performed of the abdomen and pelvis without the use of intravenous cont rast. Sagittal and coronal reformats were obtained. One or more of the following individualized dose reduction techniques were utilized for this examinat ion: 1. Automated exposure control 2. Adjustment of the mA and/or kV according to patient size 3. Use of iterative reconstruction technique. Findings: Inherently limited evaluation without intravenous contrast. Partially imaged bilateral breast implants. Calcific coronary artery disease. Trace bilateral pleural effusions with overlying volume loss. Diffusely hypoattenuating liver typical of hepatic steatosis. The liver is mildly enlarged. Consideri ng the absence of contrast no focal parenchymal abnormality. Status post cholecystectomy. There is likely a small amount of degrading blood products along the gal lbladder fossa barely greater in density than hepatic parenchyma. Edema/fatty stranding extending fro m the cholecystectomy side down along the right lower quadrant and there is a small amount of low to intermediate attenuation fluid within the pelvis. No circumscribed fluid collection. Within normal li mits configuration of the biliary tree. Homogeneous pancreatic attenuation. Mild splenomegaly measuri ng 14.7 cm AP. No adrenal gland mass. No nephrolithiasis or collecting system dilatation. Within norm al limits bladder, uterus and adnexa. Mild differential rectal wall thickening favored mostly related to incomplete distention. No mesorect al adenopathy. Mild fluid and gaseous distention of the proximal colon. No pneumatosis. No pathologic dilatation of small bowel. Edema/fatty stranding along the proximal duodenum and mild wall thickenin g at the proximal transverse duodenum segment. Scattered calcific atherosclerosis. Nonaneurysmal aorta. Precaval lymph node on image 29 series 2 is mildly enlarged at 1.1 cm AP. A few additional mildly prominent upper abdominal and retroperitoneal l ymph nodes. These lymph nodes are favored reactive especially given the appearance of the liver. Trac e pneumoperitoneum. Ventral abdominal subcutaneous gas. Body wall edema. No localized subcutaneous fl uid collection. Moderate arthrosis at the pubic symphysis. Discogenic arthrosis mainly at L5-S1. Impression: 1. Sequela of recent cholecystectomy. No large volume free fluid or fluid collection at the gallblad clarence fossa. When correlating with the HIDA scan the faint radiotracer activity seen along the undersur face of the liver does correspond with the course of the second duodenal segment up to the distal sto mach and is favored to have been from reflux. Overall the abdominal findings are felt to be within no rmal limits given proximity to surgery. If there is ongoing concern follow-up CT could be performed t o confirm expected resolution of postoperative inflammation. 2. Hepatic steatosis and hepatomegaly. Mild splenomegaly. 3. Volume overload state with small pleural effusions and body wall edema. Electronically signed by: PEREZ BROUSSARD MD (08/11/2021 2:58 PM) [facility]
[2021-08-11] MEDS: IV NORMAL SALINE 1000ML BAG 1,000 ML IV SCH (16:00)
--- NOTE | 2021-08-11 16:18 | RAD ---
EXAM: Brain MRI without contrast. HISTORY: Seizure. TECHNIQUE: Multiplanar, multisequence magnetic resonance imaging of the brain was performed without c ontrast. COMPARISON: Head CT dated 08/10/2021. FINDINGS: There is no restricted diffusion to suggest acute or subacute infarction. There is no mass effect or midline shift. There is no hydrocephalus. There is no suspicious white matter lesion. The o rbits are unremarkable. There is mild paranasal sinus mucosal thickening. There is a small amount of mastoid fluid. There are normal flow voids within the cerebral vessels. There is no suspicious calvar ial lesion. There is no hemorrhage. The hippocampi demonstrate symmetric size and signal. There is mi ld cerebral volume loss which is slightly greater than expected for patient age. IMPRESSION: 1. No acute intracranial finding or evidence of an epileptogenic lesion. 2. Mild cerebral volume loss. Electronically signed by: Opal Akins MD (08/11/2021 4:15 PM) [id number]
--- NOTE | 2021-08-11 19:08 | PATHOLOGY ---
[facility] Accession Number: [id number] . 01 Material submitted: . PART A: gallbladder - GALLBLADDER AND CONTENTS PART B: liver - LIVER BIOPSY . 01 Clinical history: . BILIARY DYSKINESIA, STEATOSIS . 02 Diagnosis: A. Gallbladder, laparoscopic cholecystectomy: - Chronic cholecystitis. . B. Liver, wedge biopsy: - Marked steatosis with parenchyma inflammation and fibrosis (final diagnosis pending). . (JPM:sandeep/sahil; 08/11/2021) [facility] 08/11/2021 1453 Local . 02 Comment: There are no calculi identified within the gallbladder lumen or specimen container. Sections of the gallbladder show chronic inflammation. There is no evidence of malignancy. . The liver wedge biopsy shows marked steatosis with parenchymal inflammation and fibrosis. The definitive diagnosis will be the subject of an addendum report pending examination by Dr. Fay, who has a specialty interest in liver pathology. . (JPM:sandeep/sahil; 08/11/2021) . . Special stains performed: Trichrome, retic, iron stain and PAS with and without diastase on B1; trichrome, retic, iron stain and PAS with and without diastase on B2. . 02 Electronically signed: . Dav Morejon MD, Pathologist NPI- [id number] . 01 Gross description: . A. Fixative: Formalin Labeled: Gallbladder and contents Specimen received: A previously disrupted gallbladder specimen with a clipped cystic duct margin Dimensions: 8.1 x 3.7 x 1.2 cm Serosa: Purple-plascencia, focally hemorrhagic, smooth and glistening Adventia: Yellow-brown, shaggy and cauterized, displaying a full thickness defect in the fundal region, measuring 1.5 x 0.6 cm. There is a second, full-thickness defect in the neck region, measuring 0.4 x 0.3 cm. Lymph node: Not identified Mucosa: Cochran to dark brown, and diffusely velvety Wall thickness: 0.1-0.5 cm Calculi: None identified within the specimen or specimen container . A1- [employer] neck, body, fundus, and the cystic duct margin. ([facility]; 08/10/2021) . B. The specimen is received in formalin, labeled "Paul Nina, liver biopsy". Received is an unoriented, liver wedge specimen, measuring 1.7 x 1.0 x 0.8 cm. The capsular surface appears cochran to dark brown, mottled, multilobulated, and glistening. The resection margin appears cochran, multilobulated, and unremarkable. The resection margin is inked green and the specimen is bisected and entirely submitted in cassettes B1 to B2. ([facility]; 08/10/2021) [facility] 08/11/2021 1343 Local . 02 Pathologist provided ICD-10: K81.1, K76.0, K75.9, K74.00 . 02 CPT . 381217, 833060, 130778, 220310, 667426, 741415, 530776, 107830, 295140, 786021, 583007, 542072 Specimen Comment: A courtesy copy of this report has been sent to [phone], [phone] Specimen Comment: [id number] Specimen Comment: Report sent to / DR GARDNER Specimen Comment: A duplicate report has been generated due to demographic updates. Performed at: 01 [facility] [address], [place] [id number] MD Sajan Pelletier MD Phone: [phone] Performed at: 02 [facility] [address] [place], [place] [id number] MD Dav Morejon MD Phone: [phone]
--- NOTE | 2021-08-11 19:29 | NUR ---
patient stated her iv was burning because the Potassium. She had a bag of ice on it and said that was not helping. After the bag was finished I tried to flush the line. The line would not flush and got no blood return. After going to [facility] Scan/CT scan I started a new iv #20 LAC. 1 bag of potassium infused. patient stated that iv site was burnig. That one would not flush. Tried another iv site but was unable to get one. another RN tried but was unable to start one. ZEV Schaefer was able to start an iv line #20 right hand. Potassium got off schedule due to the lack of iv access
[2021-08-11] MEDS: POTASSIUM CHLORIDE 20 MEQ TABLET.ER. PO SCH (22:34)
[2021-08-12] MEDS: POTASSIUM CHLORIDE 10MEQ 100 ML IV SCH (00:51)
[2021-08-12 03:27] VITALS: BP 150/94
[2021-08-12] MEDS: IV RINGERS,LACTATED 1000ML 1,000 ML IV SCH ×3 (03:48→14:00)
[2021-08-12] MEDS: LEVOTHYROXINE 100 MCG TABLET PO SCH (06:36)
[2021-08-12 07:00] VITALS: BP 160/101
[2021-08-12] MEDS: DOCUSATE SODIUM 100 MG CAPSULE. PO SCH (08:50)
[2021-08-12] MEDS: PANTOPRAZOLE IV PUSH 40 MG VIAL. IVP SCH ×2 (08:50→16:44)
[2021-08-12] MEDS: POTASSIUM CHLORIDE 20 MEQ TABLET.ER. PO SCH (08:51)
[2021-08-12] MEDS: LOSARTAN POTASSIUM 25 MG TABLET. PO SCH (08:51)
[2021-08-12] MEDS: CARVEDILOL 12.5 MG TABLET. PO SCH ×2 (08:53→16:43)
[2021-08-12] MEDS ORDERED: MULTIVITAMIN with MINERAL TABLET. PO SCH (09:00)
[2021-08-12] MEDS ORDERED: FOLIC ACID 1 MG TABLET. PO SCH (09:00)
[2021-08-12] MEDS ORDERED: THIAMINE 100 MG TABLET. PO SCH (09:00)
--- NOTE | 2021-08-12 09:00 | NUR ---
Patient scored 12 on the CIWA protocol, patient refuses oral ativan for symptoms, education given. Will continue to assess withdrawal symptoms.
--- NOTE | 2021-08-12 09:27 | PDOC ---
SURGICAL PROGRESS NOTE DATE: 08/12/21 TIME: 09:24 Subjective feeling better no nausea wants to go home Vital Signs Vital Signs Date Time Temp Pulse Resp B/P (MAP) Pulse Ox O2 Delivery O2 Flow Rate FiO2 08/12/21 08:53 82 160/101 08/12/21 07:00 98.0 18 96 Room Air 98.0 I&O Intake and Output 08/12/21 07:00 Intake Total 1040 ml Balance 1040 ml Intake Oral 840 ml IV Total 200 ml # Voids 4 General: Cooperative, No acute distress Abdomen: Soft, Other (lap dressings dry) Labs Laboratory Tests Test 08/10/21 16:52 08/11/21 03:20 08/11/21 06:00 08/11/21 11:25 Prothrombin Time 16.4 SEC (11.7-14.0) Prothromb Time International Ratio 1.4 (0.8-1.1) Iron Level 35 ug/dL (50-170) Total Iron Binding Capacity 125 ug/dL (250-450) Iron Saturation 28 % (15-34) Vitamin B12 Level 1044 pg/mL (247-911) White Blood Count 8.0 x10^3/uL (4.0-11.0) Red Blood Count 2.98 x10^6/uL (3.50-5.40) Hemoglobin 10.3 g/dL (12.0-15.5) Hematocrit 29.3 % (36.0-47.0) Mean Corpuscular Volume 98 fL (79-100) Mean Corpuscular Hemoglobin 35 pg (25-35) Mean Corpuscular Hemoglobin Concent 35 g/dL (31-37) Red Cell Distribution Width 13.6 % (11.5-14.5) Platelet Count 139 x10^3/uL (140-400) Neutrophils (%) (Auto) 73 % (31-73) Lymphocytes (%) (Auto) 14 % (24-48) Monocytes (%) (Auto) 11 % (0-9) Eosinophils (%) (Auto) 1 % (0-3) Basophils (%) (Auto) 0 % (0-3) Neutrophils # (Auto) 5.8 x10^3/uL (1.8-7.7) Lymphocytes # (Auto) 1.2 x10^3/uL (1.0-4.8) Monocytes # (Auto) 0.9 x10^3/uL (0.0-1.1) Eosinophils # (Auto) 0.1 x10^3/uL (0.0-0.7) Basophils # (Auto) 0.0 x10^3/uL (0.0-0.2) Sodium Level 131 mmol/L (136-145) 129 mmol/L (136-145) Potassium Level 2.5 mmol/L (3.5-5.1) 2.7 mmol/L (3.5-5.1) Chloride Level 92 mmol/L (98-107) 93 mmol/L (98-107) Carbon Dioxide Level 28 mmol/L (21-32) 24 mmol/L (21-32) Anion Gap 11 (6-14) 12 (6-14) Blood Urea Nitrogen 8 mg/dL (7-20) 7 mg/dL (7-20) Creatinine 1.6 mg/dL (0.6-1.0) 1.4 mg/dL (0.6-1.0) Estimated GFR (Cockcroft-Gault) 33.3 38.9 BUN/Creatinine Ratio 5 (6-20) Glucose Level 108 mg/dL (70-99) 124 mg/dL (70-99) Calcium Level 5.8 mg/dL (8.5-10.1) 6.1 mg/dL (8.5-10.1) Magnesium Level 0.6 mg/dL (1.8-2.4) Total Bilirubin 2.6 mg/dL (0.2-1.0) Aspartate Amino Transf (AST/SGOT) 130 U/L (15-37) Alanine Aminotransferase (ALT/SGPT) 48 U/L (14-59) Alkaline Phosphatase 74 U/L (46-116) Total Protein 5.5 g/dL (6.4-8.2) Albumin 2.1 g/dL (3.4-5.0) Albumin/Globulin Ratio 0.6 (1.0-1.7) Ionized Calcium 0.75 mmol/L (1.13-1.32) Laboratory Tests Test 08/11/21 11:25 Sodium Level 129 mmol/L (136-145) Potassium Level 2.7 mmol/L (3.5-5.1) Chloride Level 93 mmol/L (98-107) Carbon Dioxide Level 24 mmol/L (21-32) Anion Gap 12 (6-14) Blood Urea Nitrogen 7 mg/dL (7-20) Creatinine 1.4 mg/dL (0.6-1.0) Estimated GFR (Cockcroft-Gault) 38.9 Glucose Level 124 mg/dL (70-99) Calcium Level 6.1 mg/dL (8.5-10.1) Assessment/Plan reviewed images will review with dr Carbajal Justicifation of Admission Dx: Justifications for Admission: Justification of Admission Dx: N/A BEATRIZ PAN APRN August 12, 2021 09:27
--- NOTE | 2021-08-12 10:14 | PDOC ---
PROGRESS NOTES Date of Service DATE: 08/12/21 TIME: 10:10 Assessment Alcohol withdrawal seizures, narcotics and recent surgery also lower the seizure threshold. Negative brain MRI Liver disease, work-up in progress, severe abdominal bloating, no fluid on the CT. Liver biopsy shows marked steatosis with parenchymal inflammation and fibrosis Symptoms of peripheral neuropathy, bedside examination unremarkable Plan [place] protocol Hold on electroencephalogram Hold on anticonvulsants, discussed risk, benefits, alternatives. Patient understands that she cannot drive until she has gone 6 months without a seizure. Subjective No complaints Objective Vital Signs Date Time Temp Pulse Resp B/P (MAP) Pulse Ox O2 Delivery O2 Flow Rate FiO2 08/12/21 08:53 82 160/101 08/12/21 07:00 98.0 18 96 Room Air 98.0 Intake and Output 08/12/21 07:00 Intake Total 1040 ml Balance 1040 ml Intake Oral 840 ml IV Total 200 ml # Voids 4 PHYSICAL EXAM Alert. Oriented to time, place and person. PERRL. EOMI. CN: no focal findings. Muscle tone: normal. Muscle strength: 5/5 DTR: 2+ Plantar reflex: Flexor Gait: not examined in bed. Sensory exam: no abnormal findings. No cerebellar signs elicited. Review of Relevant I have reviewed the following items justin (where applicable) has been applied. Labs Laboratory Tests Test 08/10/21 16:52 08/11/21 03:20 08/11/21 06:00 08/11/21 11:25 Prothrombin Time 16.4 SEC (11.7-14.0) Prothromb Time International Ratio 1.4 (0.8-1.1) Iron Level 35 ug/dL (50-170) Total Iron Binding Capacity 125 ug/dL (250-450) Iron Saturation 28 % (15-34) Vitamin B12 Level 1044 pg/mL (247-911) White Blood Count 8.0 x10^3/uL (4.0-11.0) Red Blood Count 2.98 x10^6/uL (3.50-5.40) Hemoglobin 10.3 g/dL (12.0-15.5) Hematocrit 29.3 % (36.0-47.0) Mean Corpuscular Volume 98 fL (79-100) Mean Corpuscular Hemoglobin 35 pg (25-35) Mean Corpuscular Hemoglobin Concent 35 g/dL (31-37) Red Cell Distribution Width 13.6 % (11.5-14.5) Platelet Count 139 x10^3/uL (140-400) Neutrophils (%) (Auto) 73 % (31-73) Lymphocytes (%) (Auto) 14 % (24-48) Monocytes (%) (Auto) 11 % (0-9) Eosinophils (%) (Auto) 1 % (0-3) Basophils (%) (Auto) 0 % (0-3) Neutrophils # (Auto) 5.8 x10^3/uL (1.8-7.7) Lymphocytes # (Auto) 1.2 x10^3/uL (1.0-4.8) Monocytes # (Auto) 0.9 x10^3/uL (0.0-1.1) Eosinophils # (Auto) 0.1 x10^3/uL (0.0-0.7) Basophils # (Auto) 0.0 x10^3/uL (0.0-0.2) Sodium Level 131 mmol/L (136-145) 129 mmol/L (136-145) Potassium Level 2.5 mmol/L (3.5-5.1) 2.7 mmol/L (3.5-5.1) Chloride Level 92 mmol/L (98-107) 93 mmol/L (98-107) Carbon Dioxide Level 28 mmol/L (21-32) 24 mmol/L (21-32) Anion Gap 11 (6-14) 12 (6-14) Blood Urea Nitrogen 8 mg/dL (7-20) 7 mg/dL (7-20) Creatinine 1.6 mg/dL (0.6-1.0) 1.4 mg/dL (0.6-1.0) Estimated GFR (Cockcroft-Gault) 33.3 38.9 BUN/Creatinine Ratio 5 (6-20) Glucose Level 108 mg/dL (70-99) 124 mg/dL (70-99) Calcium Level 5.8 mg/dL (8.5-10.1) 6.1 mg/dL (8.5-10.1) Magnesium Level 0.6 mg/dL (1.8-2.4) Total Bilirubin 2.6 mg/dL (0.2-1.0) Aspartate Amino Transf (AST/SGOT) 130 U/L (15-37) Alanine Aminotransferase (ALT/SGPT) 48 U/L (14-59) Alkaline Phosphatase 74 U/L (46-116) Total Protein 5.5 g/dL (6.4-8.2) Albumin 2.1 g/dL (3.4-5.0) Albumin/Globulin Ratio 0.6 (1.0-1.7) Ionized Calcium 0.75 mmol/L (1.13-1.32) Laboratory Tests Test 08/11/21 11:25 Sodium Level 129 mmol/L (136-145) Potassium Level 2.7 mmol/L (3.5-5.1) Chloride Level 93 mmol/L (98-107) Carbon Dioxide Level 24 mmol/L (21-32) Anion Gap 12 (6-14) Blood Urea Nitrogen 7 mg/dL (7-20) Creatinine 1.4 mg/dL (0.6-1.0) Estimated GFR (Cockcroft-Gault) 38.9 Glucose Level 124 mg/dL (70-99) Calcium Level 6.1 mg/dL (8.5-10.1) Medications Current Medications Cefazolin Sodium/ Dextrose 50 ml @ 100 mls/hr 1X PREOP PRN IV PRIOR TO PROCEDURE Last administered on 08/09/21at 13:58; Start 08/09/21 at 06:00; Stop 08/09/21 at 18:00; Status DC Ondansetron HCl (Zofran) 4 mg 1X ONCE IM Last administered on 08/09/21at 11:45; Start 08/09/21 at 11:45; Stop 08/09/21 at 11:46; Status DC Ringer's Solution 1,000 ml @ 75 mls/hr [id number] IV Last administered on 02/21at 01:05; Start 08/09/21 at 11:45; Stop 08/10/21 at 19:42; Status DC Scopolamine (Transderm-Scop) 1 patch STK-MED ONCE TD ; Start 08/09/21 at 11:49; Stop 08/09/21 at 11:49; Status DC Scopolamine (Transderm-Scop) 1 patch 1X ONCE TD Last administered on 08/09/21at 12:10; Start 08/09/21 at 12:15; Stop 08/09/21 at 12:16; Status DC Cellulose (Surgicel Hemostat 2x14) 1 each STK-MED ONCE .ROUTE ; Start 08/09/21 at 13:34; Stop 08/09/21 at 13:34; Status DC Bupivacaine HCl/ Epinephrine Bitart (Sensorcain-Epi 0.5% Kit) 30 ml STK-MED ONCE .ROUTE Last administered on 08/09/21at 14:17; Start 08/09/21 at 13:34; Stop 08/09/21 at 13:35; Status DC Iohexol (Omnipaque 300 Mg/ml) 50 ml STK-MED ONCE .ROUTE Last administered on 08/09/21at 14:17; Start 08/09/21 at 13:34; Stop 08/09/21 at 13:35; Status DC Bisacodyl (Dulcolax Supp) 10 mg STK-MED ONCE .ROUTE ; Start 08/09/21 at 13:34; Stop 08/09/21 at 13:35; Status DC Lidocaine HCl (Lidocaine Pf 2% Vial) 5 ml STK-MED ONCE .ROUTE ; Start 08/09/21 at 13:36; Stop 08/09/21 at 13:36; Status DC Propofol (Diprivan) 200 mg STK-MED ONCE IV ; Start 08/09/21 at 13:36; Stop 08/09/21 at 13:36; Status DC Ondansetron HCl (Zofran) 4 mg STK-MED ONCE .ROUTE ; Start 08/09/21 at 13:36; Stop 08/09/21 at 13:36; Status DC Dexamethasone Sodium Phosphate (Decadron) 4 mg STK-MED ONCE .ROUTE ; Start 08/09/21 at 13:36; Stop 08/09/21 at 13:36; Status DC Sevoflurane (Ultane) 60 ml STK-MED ONCE IH ; Start 08/09/21 at 13:36; Stop 08/09/21 at 13:36; Status DC Fentanyl Citrate (Fentanyl 2ml Vial) 100 mcg STK-MED ONCE .ROUTE ; Start 08/09/21 at 13:36; Stop 08/09/21 at 13:36; Status DC Rocuronium Pullman (Zemuron) 50 mg STK-MED ONCE .ROUTE ; Start 08/09/21 at 13:38; Stop 08/09/21 at 13:38; Status DC Heparin Sodium (Porcine) 1000 unit/Sodium Chloride 1,001 ml @ 1,001 mls/hr 1X ONCE IRR Last administered on 08/09/21at 14:29; Start 08/09/21 at 14:00; Stop 08/09/21 at 14:59; Status DC Neostigmine Pullman (Neostigmine Methylsulfate) 5 mg STK-MED ONCE .ROUTE ; Start 08/09/21 at 13:39; Stop 08/09/21 at 13:39; Status DC Hydromorphone HCl (Dilaudid) 2 mg STK-MED ONCE .ROUTE ; Start 08/09/21 at 14:20; Stop 08/09/21 at 14:20; Status DC Propofol (Diprivan) 200 mg STK-MED ONCE IV ; Start 08/09/21 at 14:27; Stop 08/09/21 at 14:28; Status DC Phenylephrine HCl (PHENYLEPHRINE in 0.9% NACL PF) 1 mg STK-MED ONCE IV ; Start 08/09/21 at 14:44; Stop 08/09/21 at 14:44; Status DC Ephedrine Sulfate (ePHEDrine PF IN SALINE SYRINGE) 50 mg STK-MED ONCE IV ; Start 08/09/21 at 14:56; Stop 08/09/21 at 14:56; Status DC Sodium Chloride (Normal Saline Flush) 3 ml QSHIFT PRN IV AFTER MEDS AND BLOOD DRAWS; Start 08/09/21 at 16:00 Ringer's Solution 1,000 ml @ 100 mls/hr Q10H IV Last administered on 08/12/21at 03:48; Start 08/09/21 at 16:00 Dextrose (Dextrose 50%-Water Syringe) 12.5 gm PRN Q15MIN PRN IV SEE COMMENTS; Start 08/09/21 at 16:00 Acetaminophen/ Hydrocodone Bitart (Lortab 5/325) 1 tab PRN Q4HRS PRN PO MILD PAIN 1-3 Last administered on 08/10/21at 01:09; Start 08/09/21 at 16:00 Naloxone HCl (Narcan) 0.4 mg PRN Q2MIN PRN IV SEE INSTRUCTIONS; Start 08/09/21 at 16:00 Sodium Chloride 1,000 ml @ 25 mls/hr Q24H IV ; Start 08/09/21 at 16:00 Morphine Sulfate (Morphine Sulfate) 1 mg PRN Q1HR PRN IV PAIN-SEE COMMENTS Last administered on 08/10/21at 20:34; Start 08/09/21 at 16:00 Docusate Sodium (Colace) 100 mg BID PO Last administered on 08/12/21at 08:50; Start 08/09/21 at 21:00 Ondansetron HCl (Zofran) 4 mg PRN Q6HRS PRN IVP NAUESA, 1ST CHOICE Last administered on 08/10/21at 20:33; Start 08/09/21 at 16:00 Prochlorperazine Edisylate (Compazine) 5 mg PRN Q10MIN PRN IV NAUSEA Last administered on 08/09/21at 16:38; Start 08/09/21 at 16:45 Prochlorperazine Edisylate (Compazine) 10 mg STK-MED ONCE .ROUTE ; Start 08/09/21 at 16:35; Stop 08/09/21 at 16:35; Status DC Levothyroxine Sodium (Synthroid) 100 mcg DAILY06 PO Last administered on 08/12/21at 06:36; Start 08/10/21 at 06:00 Losartan Potassium (Cozaar) 25 mg DAILY PO Last administered on 08/12/21 08:51; Start 08/10/21 at 09:00 Carvedilol (Coreg) 25 mg BIDWMEALS PO Last administered on 08/12/21 08:53; Start 08/09/21 at 22:00 Zolpidem Tartrate (Ambien) 5 mg PRN QHS PRN PO INSOMNIA, MAY REPEAT X1 Last administered on 08/09/21at 21:25; Start 08/09/21 at 21:15 Info (Non-Icu Electrolyte Protocol) 1 ea CONT PRN PRN MC PER PROTOCOL; Start 08/10/21 at 07:45 Potassium Chloride/Water 100 ml @ 100 mls/hr Q1H IV Last administered on 08/10/21at 14:30; Start 08/10/21 at 09:00; Stop 08/10/21 at 12:59; Status DC Potassium Chloride (Klor-Con) 40 meq 1X ONCE PO ; Start 08/10/21 at 07:45; Stop 08/10/21 at 07:46; Status UNV Potassium Chloride/Water 100 ml @ 100 mls/hr Q1H IV ; Start 08/10/21 at 07:45; Stop 08/10/21 at 11:44; Status UNV Potassium Chloride (Klor-Con) 40 meq Q4H PO ; Start 08/10/21 at 07:45; Stop 08/10/21 at 11:46; Status UNV Potassium Chloride/Water 100 ml @ 100 mls/hr Q1H IV ; Start 08/10/21 at 07:45; Stop 08/10/21 at 11:44; Status UNV Pantoprazole Sodium (PROTONIX VIAL for IV PUSH) 40 mg BIDAC IVP Last administered on 08/12/21at 08:50; Start 08/10/21 at 16:30 Multivitamins 10 ml/Thiamine HCl 100 mg/Folic Acid 1 mg/Sodium Chloride 1,011.2 ml @ 100 mls/ hr DAILY IV Last administered on 08/11/21at 10:34; Start 08/11/21 at 09:00; Stop 08/11/21 at 12:18; Status DC Multivitamins (Thera M Plus) 1 tab DAILY PO Last administered on 08/12/21at 08:51; Start 08/12/21 at 09:00 Folic Acid (Folic Acid) 1 mg DAILY PO Last administered on 08/12/21at 08:51; Start 08/12/21 at 09:00 Thiamine Mononitrate (Vitamin B-1) 100 mg DAILY PO Last administered on 08/12/21at 08:51; Start 08/12/21 at 09:00 Chlordiazepoxide (Librium) 50 mg PRN Q1HR PRN PO For CIWA 8-14; Start 08/10/21 at 23:15 Chlordiazepoxide (Librium) 100 mg PRN Q1HR PRN PO For CIWA 15 or greater; Start 08/10/21 at 23:15 Lorazepam (Ativan) 4 mg PRN Q1HR PRN PO For CIWA 8-14; Start 08/10/21 at 23:15 Lorazepam (Ativan) 8 mg PRN Q1HR PRN PO For CIWA 15 or greater; Start 08/10/21 at 23:15 Lorazepam (Ativan Inj) 2 mg PRN Q1HR PRN IV For CIWA 8-14 Last administered on 08/11/21at 22:32; Start 08/10/21 at 23:15 Lorazepam (Ativan Inj) 4 mg PRN Q1HR PRN IV For CIWA 15 or greater Last administered on 08/10/21at 23:23; Start 08/10/21 at 23:15 Haloperidol Lactate (Haldol Inj) 5 mg PRN Q4HRS PRN IVP Hallucinatns,Confusn,Delirium; Start 08/10/21 at 23:15 Diphenhydramine HCl (Benadryl) 25 mg PRN Q15MIN PRN IVP EPS symptoms 2'Haldol admin; Start 08/10/21 at 23:15 Lorazepam (Ativan Inj) 2 mg PRN Q15MIN PRN IV SEE COMMENTS; Start 08/10/21 at 23:15; Stop 08/11/21 at 01:05; Status DC Lorazepam (Ativan Inj) 4 mg PRN Q15MIN PRN IV SEE COMMENTS; Start 08/10/21 at 23:15; Stop 08/11/21 at 01:06; Status DC Potassium Chloride/Water 100 ml @ 100 mls/hr Q1H IV Last administered on 08/12/21at 00:51; Start 08/11/21 at 06:00; Stop 08/11/21 at 13:59; Status DC Potassium Chloride (Klor-Con) 40 meq 1X ONCE PO Last administered on 08/11/21at 10:10; Start 08/11/21 at 08:00; Stop 08/11/21 at 08:01; Status DC Calcium Gluconate (Calcium Gluconate) 1,000 mg 1X ONCE IVP Last administered on 08/11/21at 06:22; Start 08/11/21 at 05:45; Stop 08/11/21 at 05:51; Status DC Potassium Chloride (Klor-Con) 40 meq BID PO Last administered on 08/12/21at 08:51; Start 08/11/21 at 21:00; Stop 08/12/21 at 20:59 Active Scripts Active Reported Losartan Potassium 50 Mg Tablet 25 Mg PO DAILY Levothyroxine Sodium 100 Mcg Tablet 100 Mcg PO DAILYAC Ondansetron Hcl 4 Mg Tablet 4 Mg PO PRN BID PRN Nexium Capsule (Esomeprazole Magnesium) 20 Mg Capsule.dr 20 Mg PO DAILYAC Ambien (Zolpidem Tartrate) 10 Mg Tablet 10 Mg PO PRN QHS PRN Carvedilol 25 Mg Tablet 25 Mg PO BIDWMEALS Vitals/I & O Vital Sign - Last 24 Hours 08/11/21 08/11/21 08/11/21 08/11/21 10:11 10:11 11:00 17:40 Pulse 73 73 70 70 Resp 18 B/P (MAP) 153/93 153/93 111/67 (82) 111/67 Pulse Ox 97 O2 Delivery Room Air 08/11/21 08/11/21 08/11/21 08/12/21 19:30 20:00 23:45 03:27 Temp 98.2 97.4 98.3 98.2 97.4 98.3 Pulse 79 92 81 Resp 18 18 20 B/P (MAP) 128/87 (101) 149/72 (97) 150/94 (112) Pulse Ox 96 92 97 O2 Delivery Room Air Room Air Room Air Room Air 08/12/21 08/12/21 08/12/21 07:00 08:51 08:53 Temp 98.0 98.0 Pulse 82 82 82 Resp 18 B/P (MAP) 160/101 (120) 160/101 160/101 Pulse Ox 96 O2 Delivery Room Air Intake and Output 08/11/21 08/11/21 08/12/21 15:00 23:00 07:00 Intake Total 340 ml 220 ml 480 ml Balance 340 ml 220 ml 480 ml Images Brain MRI without contrast. HISTORY: Seizure. TECHNIQUE: Multiplanar, multisequence magnetic resonance imaging of the brain was performed without contrast. COMPARISON: Head CT dated 08/10/2021. FINDINGS: There is no restricted diffusion to suggest acute or subacute infarction. There is no mass effect or midline shift. There is no hydrocephalus. There is no suspicious white matter lesion. The orbits are unremarkable. There is mild paranasal sinus mucosal thickening. There is a small amount of mastoid fluid. There are normal flow voids within the cerebral vessels. There is no suspicious calvarial lesion. There is no hemorrhage. The hippocampi demonstrate symmetric size and signal. There is mild cerebral volume loss which is slightly greater than expected for patient age. IMPRESSION: 1. No acute intracranial finding or evidence of an epileptogenic lesion. 2. Mild cerebral volume loss. Justicifation of Admission Dx: Justifications for Admission: Justification of Admission Dx: N/A DIXIE JARRETT MD August 12, 2021 10:14
[2021-08-12 11:00] VITALS: BP 147/95
[2021-08-12] MEDS ORDERED: MAGNESIUM SULFATE 2GM 50 ML IV ONE ×3 (11:30→17:00)
[2021-08-12] MEDS ORDERED: MAGNESIUM SULFATE 4GM 100 ML IV ONE (12:00)
--- NOTE | 2021-08-12 12:22 | PDOC ---
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 Ordered regular food for lunch, feels better. No vomiting, says stooling. Says no one's doing anything here for her. Objective: Vital Signs: Vital Signs Date Time Temp Pulse Resp B/P (MAP) Pulse Ox O2 Delivery O2 Flow Rate FiO2 08/12/21 11:00 98.6 78 18 147/95 (112) 97 Room Air 98.6 Labs: Laboratory Tests Test 08/12/21 10:15 Magnesium Level 0.6 mg/dL Clinical history: . BILIARY DYSKINESIA, STEATOSIS . 02 Diagnosis: A. Gallbladder, laparoscopic cholecystectomy: - Chronic cholecystitis. . B. Liver, wedge biopsy: - Marked steatosis with parenchyma inflammation and fibrosis (final diagnosis pending). . (JPM:sandeep/sahil; 08/11/2021) [facility] 08/11/2021 [address] [facility] . 02 Comment: There are no calculi identified within the gallbladder lumen or specimen container. Sections of the gallbladder show chronic inflammation. There is no evidence of malignancy. . The liver wedge biopsy shows marked steatosis with parenchymal inflammation and fibrosis. The definitive diagnosis will be the subject of an addendum report pending examination by Dr. Fay, who has a specialty interest in liver pathology. Imaging: CT A/P Impression: 1. Sequela of recent cholecystectomy. No large volume free fluid or fluid collection at the gallbladder fossa. When correlating with the HIDA scan the faint radiotracer activity seen along the undersurface of the liver does correspond with the course of the second duodenal segment up to the distal stomach and is favored to have been from reflux. Overall the abdominal findings are felt to be within normal limits given proximity to surgery. If there is ongoing concern follow-up CT could be performed to confirm expected resolution of postoperative inflammation. 2. Hepatic steatosis and hepatomegaly. Mild splenomegaly. 3. Volume overload state with small pleural effusions and body wall edema. Brain MRI IMPRESSION: 1. No acute intracranial finding or evidence of an epileptogenic lesion. 2. Mild cerebral volume loss. PE: GEN: NAD LUNGS: CTAB HEART: RRR ABD: round/distended - stable, non-tender, BS+ NEURO/PSYCH: A & O 3, agitated A/P: S/p cholecystectomy and liver biopsy - CT as above, not suspecting bile leak Upper abdominal discomfort, bloating, nausea - better Seizure/alcohol withdrawal ACD, thrombocytopenia, coagulopathy, alcoholic hepatitis/liver disease Hypokalemia, hypocalcemia, hyponatremia, hypomagnesemia GERD -- Attempted to explain rationale of not discharging until electrolytes better - she's agitated today. Follow labs. ADAT. PO PPI if tolerates. Follow-up on final liver biopsy results. Justicifation of Admission Dx: Justifications for Admission: Justification of Admission Dx: N/A EREN STOVALL August 12, 2021 12:22 CHRISTIN STORY MD August 12, 2021 12:25
[2021-08-12 15:00] VITALS: BP 137/89
[2021-08-12 15:45] LABS: CALCIUM 6.5 mg/dL (8.5-10.1); CREATININE 0.8 mg/dL (0.6-1.0); GFR 74.2; MAGNESIUM 1.6 mg/dL (1.8-2.4); POTASSIUM 3.9 mmol/L (3.5-5.1)
[2021-08-12] MEDS: IV NORMAL SALINE 1000ML BAG 1,000 ML IV SCH (16:00)
[2021-08-12] MEDS ORDERED: THIA100T22 PO (16:24)
[2021-08-12] MEDS ORDERED: Folic Acid PO (16:24)
--- NOTE | 2021-08-12 16:26 | DISCH ---
DISCHARGE INSTRUCTIONS Condition on Discharge Condition on Discharge: Stable Activity After Discharge Activity Instructions for Disc: Activity as tolerated Lifting Instructions after Dis: Do not lift >10 pounds Exercise Instruction after Dis: Walk 30 min, 3 x per week Driving Instructions after Dis: Do not drive today Weight Bearing Status after Di: Full weight bearing Diet after Discharge Diet after Discharge: Cardiac Follow-Up Follow up with: PCP within 2 weeks of discharge Follow Up With: Surgery as scheduled for post-operative check EDEL FLEMING MD August 12, 2021 16:26
[2021-08-12] MEDS ORDERED: MAGNESIUM OXIDE 400 MG TABLET PO SCH (16:30)
[2021-08-12 16:43] VITALS: BP 147/95
[2021-08-12] MEDS ORDERED: MAGNESIUM OXIDE 400 MG TABLET PO ONE (17:00)
--- NOTE | 2021-08-12 18:54 | NUR ---
Pt was given discharge instructions, follow up information, new prescriptions, and teaching. Pt agreed to instructions. Pt left at 1715, escorted by hospital REFERENCE TEST CLERK, to drive her home with self care. Iv removed. All belongings left with patient at time of discharge. Teaching attached on proper diet for potassium and magnesium def. Follow up with PCP for management.
--- NOTE | 2021-08-14 13:09 | PDOC3 ---
[facility]-Discharge Summary Date of Admission: Date of Admission: August 09, 2021 Date of Discharge: Date of Discharge: August 12, 2021 Discharge Diagnosis: Discharge Diagnosis: Acute cholecystitis status post laparoscopic cholecystectomy 08/10/2021 Acute electrolyte derangementhypokalemia, hypocalcemia, hyponatremia, hypochloremia suggestive of volume depletion ROSANNA due to vasomotor nephropathy Acute seizures EtOH withdrawal Macrocytic anemia concerning for B12/folate deficiency Thrombocytopenia concerning for elemental deficiency as mentioned above History of alcohol abuse History of diabetes mellitus History of hypertension Consults: Consults: Per neurology: Assessment Alcohol withdrawal seizures, narcotics and recent surgery also lower the seizure threshold. Negative brain MRI Liver disease, work-up in progress, severe abdominal bloating, no fluid on the CT. Liver biopsy shows marked steatosis with parenchymal inflammation and fibrosis Symptoms of peripheral neuropathy, bedside examination unremarkable Plan CIWA protocol Hold on electroencephalogram Hold on anticonvulsants, discussed risk, benefits, alternatives. Patient understands that she cannot drive until she has gone 6 months without a seizure. Hospital Course: Hospital Course: 55-year-old female who presented to the hospital for an elective cholecystectomy status post laparoscopic cholecystectomy with postoperative course complicated by electrolyte derangement and seizures and alcohol withdrawal. Patient had a episode of tonic-clonic seizures last night in the postoperative period. Pat ient has severe electrolyte abnormalities including hypocalcemia, hypokalemia, hyponatremia, hypochloremia and some kidney injury. Patient was given Ativan and also IV electrolyte replacements. During postoperative course after surgery patient had seizure episode. Likely due to alcohol withdrawal seizures. Patient was also on CIWA protocol. Electrolytes were abnormal and replaced as needed. By time of discharge patient's potassium improved to 3.9 and magnesium 1.6 which she was given a dose of magnesium oxide 400 mg before discharge. Patient was tolerating diet and was anxious to leave. Alcohol cessation was encouraged. Rest of hospital course was uneventful Disposition: Disposition/Orders: D/C to Home Activity: Activity: Resume previous activity Diet: Diet: Cardiac Medications: Home Meds Active Scripts Thiamine Mononitrate (VITAMIN B-1) 100 Mg Tablet, 300 MG PO DAILY for supplement for 30 Days, #90 TAB 2 Refills Prov:EDEL FLEMING MD 08/12/21 [Folic Acid] 1 MG TABLET No Conflict Check, 1 MG PO DAILY for supplement for 30 Days, #30 2 Refills Prov:EDEL FLEMING MD 08/12/21 Reported Medications Losartan Potassium (LOSARTAN POTASSIUM) 50 Mg Tablet, 25 MG PO DAILY for HYPERTENSION, TAB 08/08/21 Levothyroxine Sodium (LEVOTHYROXINE SODIUM) 100 Mcg Tablet, 100 MCG PO DAILYAC for THYROID SUPPLEMENT, #30 TAB 0 Refills 08/08/21 Ondansetron Hcl (ONDANSETRON HCL) 4 Mg Tablet, 4 MG PO PRN BID PRN for NAUSEA/VOMITING, TAB 08/08/21 Esomeprazole Magnesium (NEXIUM CAPSULE) 20 Mg Capsule.dr, 20 MG PO DAILYAC for CONTROL REFLUX, #30 CAP 0 Refills 08/08/21 Carvedilol (CARVEDILOL) 25 Mg Tablet, 25 MG PO BIDWMEALS for CARDIAC, TAB 08/08/21 Discontinued Reported Medications Zolpidem Tartrate (AMBIEN) 10 Mg Tablet, 10 MG PO PRN QHS PRN for INSOMNIA, TAB 0 Refills 08/08/21 Scheduled Carvedilol (Carvedilol), 25 MG PO BIDWMEALS, (Reported) Esomeprazole Magnesium (Nexium Capsule), 20 MG PO DAILYAC, (Reported) Levothyroxine Sodium (Levothyroxine Sodium), 100 MCG PO DAILYAC, (Reported) Losartan Potassium (Losartan Potassium), 25 MG PO DAILY, (Reported) Thiamine Mononitrate (Vitamin B-1), 300 MG PO DAILY [Folic Acid], 1 MG PO DAILY Scheduled PRN Ondansetron Hcl (Ondansetron Hcl), 4 MG PO PRN BID PRN for NAUSEA/VOMITING, (Reported) Discontinued Medications Zolpidem Tartrate (Ambien), 10 MG PO PRN QHS PRN for INSOMNIA, (Reported) Total Time: Total Time: Total time spent was 33 minutes in preparing scripts, discharge planning with SWI and RN and preparing this discharge summary Patient seen and examined on day of discharge. No acute abnormal findings. Justicifation of Admission Dx: Justifications for Admission: Justification of Admission Dx: N/A EDEL FLEMING MD August 14, 2021 13:09
[2021-08-14 21:35] LABS: CALCIUM 6.3 mg/dL (8.5-10.1); CREATININE 0.9 mg/dL (0.6-1.0); GFR 64.8
== END 2021-08-12 18:56 | disposition home or self-care (01) | DRG 417 ==
LOC: SURG 10:58 → 4 NORTH 15:49 → OBSVTOIN 08-11 10:23
PROVIDERS: ADMIT Surgery; ATTEND Surgery
PROC: 0FT44ZZ Resection of Gallbladder, Percutaneous Endoscopic Approach (ICD-10-PCS; principal; 2021-08-11)
PROC: 0FB04ZX Excision of Liver, Percutaneous Endoscopic Approach, Diagnostic (ICD-10-PCS; 2021-08-11)
PROC: BF101ZZ Fluoroscopy of Bile Ducts using Low Osmolar Contrast (ICD-10-PCS; 2021-08-11)
DX: K81.0 Acute cholecystitis (principal); N17.0 Acute kidney failure with tubular necrosis; A04.4 Other intestinal Escherichia coli infections; D68.9 Coagulation defect, unspecified; E87.1 Hypo-osmolality and hyponatremia; F05 Delirium due to known physiological condition; F10.239 Alcohol dependence with withdrawal, unspecified; D53.9 Nutritional anemia, unspecified; D69.6 Thrombocytopenia, unspecified; E03.9 Hypothyroidism, unspecified; E11.9 Type 2 diabetes mellitus without complications; E66.01 Morbid (severe) obesity due to excess calories; E83.42 Hypomagnesemia; E83.51 Hypocalcemia; E87.6 Hypokalemia; E87.70 Fluid overload, unspecified; E87.8 Other disorders of electrolyte and fluid balance, not elsewhere classified; I10 Essential (primary) hypertension; K21.9 Gastro-esophageal reflux disease without esophagitis; K21.00 Gastro-esophageal reflux disease with esophagitis, without bleeding; K70.10 Alcoholic hepatitis without ascites; K76.0 Fatty (change of) liver, not elsewhere classified; K82.8 Other specified diseases of gallbladder; R56.9 Unspecified convulsions; Z80.9 Family history of malignant neoplasm, unspecified; Z82.49 Family history of ischemic heart disease and other diseases of the circulatory system; Z83.3 Family history of diabetes mellitus; Z87.891 Personal history of nicotine dependence; K81.1 Chronic cholecystitis
CPT/HCPCS: 36415; 70450; 70551; 74018; 74176; 74300; 78226; 80048; 80053; 80076; 82310; 82607; 83540; 83550; 83735; 85025; 85610; 86705; 86709; 86803; 87340; 96374; A4213; A4314; A4930; A6219; A6254; A9537; C1887; C9113; G0378; G0379; J0610; J0690; J0780; J1100; J1170; J1644; J2060; J2270; J2370; J2405; J2704; J2710; J3010; J3411; J3475; J3480; J3490; J7030; J7120; Q9967

== ENCOUNTER 2021-08-27 01:38 | Inpatient (IN) | payer BC ==
[2021-08-27] VITALS (7 sets, daily range): BP systolic 126–170; BP diastolic 84–97
[~2021-08-27] VITALS: Ht 167.6 cm; Wt 82.0 kg
[~2021-08-27 01:38] MED LIST changes: +Folic Acid PO; +THIA100T22 PO
[2021-08-27] MEDS ORDERED: ZOLP10TA PO (03:04)
[2021-08-27] MEDS ORDERED: MAGN250T10 PO (03:04)
[2021-08-27] MEDS ORDERED: ONDANSETRON PF 4 MG/2 ML VIAL. IVP PRN ×2 (03:15→08:45)
[2021-08-27] MEDS ORDERED: MORPHINE SULFATE 2 MG/ML INJ. IVP PRN ×2 (03:15→08:45)
[2021-08-27] MEDS ORDERED: PIP/TAZO PER PHARMACY MC PRN (03:15)
[2021-08-27] MEDS: IV NORMAL SALINE 1000ML BAG 1,000 ML IV SCH ×5 (03:46→23:38)
[2021-08-27] MEDS: PIPERACILLIN/TAZOBACTAM 3.375 GM in IV NORMAL SALINE 50ML 50 ML IV SCH ×4 (03:53→23:37)
--- NOTE | 2021-08-27 07:07 | NUR ---
Routine Consults for GI (Dr. Romero) AND General Surgery Dr. Carbajal called into the message center
--- NOTE | 2021-08-27 08:41 | PDOC1 ---
History and Physical Date of Service: DOS: DATE: 08/27/21 TIME: 08:41 Chief Complaint: Chief Complain: Abdominal pain History of Present Illness: HPI: 56-year-old female status post laparoscopic cholecystectomy on August 09, 2021 who comes to the emergency department in [facility] for some nausea and abdominal pain and bloating which she states has been worsening for the past couple days. Patient did contact Dr. Pérez and she was directed to the emergency department. Imaging was completed at the ED and and there was fluid collection on CT showing possible bile leak. There is hepatomegaly and early cirrhosis from alcohol use and a surgery consult was recommended. Patient was transferred over from [facility] by ambulance and admitted for further investigation. Patient upon my encounter still complained of abdominal bloating this but did not have any nausea or vomiting. She does want to go home but she feels better than before. Denies any fevers, shortness of breath, diarrhea, constipation or fevers or chills. Past Medical/Surgical History: PMH/PSH: History of hypertension, hypothyroidism, breast augmentation, , tubal ligation, tonsillectomy, laparoscopic cholecystectomy for biliary dyskinesia Allergies: Allergies: Coded Allergies: Sulfa (Sulfonamide Antibiotics) (Verified Adverse Reaction, Intermediate, Rash, 08/09/21) Family History: Family History: Diabetes and hypertension in the family Social History: Social History: Former smoker and daily drinker. Patient states she stopped drinking hard liquor. Current Medications: Current Medications Current Medications Piperacillin Sod/ Tazobactam Sod (Zosyn Per Pharmacy) 1 each PRN DAILY PRN MC SEE COMMENTS; Start 08/27/21 at 03:15 Piperacillin Sod/ Tazobactam Sod 3.375 gm/Sodium Chloride 50 ml @ 100 mls/hr Q6HRS IV Last administered on 08/27/21at 03:53; Start 08/27/21 at 04:00 Sodium Chloride 1,000 ml @ 100 mls/hr Q10H IV Last administered on 08/27/21at 03:46; Start 08/27/21 at 03:30 Ondansetron HCl (Zofran) 4 mg PRN Q6HRS PRN IVP NAUSEA/VOMITING; Start 08/27/21 at 03:15 Morphine Sulfate (Morphine Sulfate) 2 mg PRN Q2HR PRN IVP PAIN; Start 08/27/21 at 03:15 Active Scripts Active Vitamin B-1 (Thiamine Mononitrate) 100 Mg Tablet 300 Mg PO DAILY 30 Days [Folic Acid] 1 MG Tablet 1 Mg PO DAILY 30 Days Reported Ambien (Zolpidem Tartrate) 10 Mg Tablet 10 Mg PO PRN QHS PRN Magnesium (Magnesium Oxide) 250 Mg Tablet 250 Mg PO DAILY Losartan Potassium 50 Mg Tablet 25 Mg PO DAILY Levothyroxine Sodium 100 Mcg Tablet 100 Mcg PO DAILYAC Ondansetron Hcl 4 Mg Tablet 4 Mg PO PRN BID PRN Nexium Capsule (Esomeprazole Magnesium) 20 Mg Capsule.dr 20 Mg PO DAILYAC Carvedilol 25 Mg Tablet 25 Mg PO BIDWMEALS ROS: Review of Systems Review of System REVIEW OF SYSTEMS: GENERAL: Denies weakness SKIN: No bruising, hair changes or rashes. EYES: No blurred, double or loss of vision. NOSE AND THROAT: No history of nosebleeds, hoarseness or sore throat. HEART: No history of palpitations, chest pain or shortness of breath on exertion. LUNGS: Denies cough, hemoptysis, wheezing or shortness of breath. GASTROINTESTINAL: Denies changes in appetite, nausea, vomiting, diarrhea or constipation. GENITOURINARY: No history of frequency, urgency, hesitancy or nocturia. NEUROLOGIC: Denies history of numbness, tingling, or tremor. PSYCHIATRIC: No history of panic, anxiety or depression. ENDOCRINE: No history of heat or cold intolerance, polyuria or polydipsia. EXTREMITIES: Denies joint pain, pain on walking or stiffness. Physical Exam: Vital Signs: Vital Signs Date Time Temp Pulse Resp B/P (MAP) Pulse Ox O2 Delivery O2 Flow Rate FiO2 08/27/21 03:26 97.9 80 18 155/93 (113) 96 Room Air 97.9 Physcial Exam: GEN: No apparent distress. Alert and oriented HEENT: Normal cephalic, atraumatic, external auditory canals are patent EYES: Extraocular muscles are intact, pupil are equally round and reactive to light and accommodation MUSCULOSKELETAL: Well developed , well nourished, good range of motion ENDOCRINE: No thyromegaly was palpated LYMPHATICS: No cervical chain or axillary nodes were noted HEMATOPOIETIC: No bruising NECK: Supple, no JVD, no thyromegaly was noted LUNGS: Clear to auscultation in all lung gorman without rhonchi or wheezing HEART: RRR, S!, S2 present. Peripheral pulses intact, no obvious murmurs noted ABDOMEN: Soft, nontender. Positive bowel sounds, no organomegaly, normal bowel sounds EXTREMITIES: Without clubbing, cyanosis, or edema. Pedal pulses intact. Nega tive Homans sign NEUROLOGIC: Normal speech and tone. A&O x 3, moves all extremities, no obvious focal deficits PSYCHIATRIC: Normal affect, normal mood. Stable SKIN: No ulcerations or rashes, good skin turgor, no jaundice VASCULAR: Good capillary refill, neurovascular bundle appears to be intact Labs: Labs: Labs reviewed and significant for WBC of 17, potassium of 3.4, bilirubin of 2.5, AST of 148, ALT of 59, ALP of 124 and urine positive for nitrites. Images: Images Image results mentioned above. Assessment/Plan Assessment/Plan Acute abdominal pain concerning for postoperative bile leak Elevated transaminitis Mild hyperbilirubinemia History of cirrhosis History of alcohol abuse History of biliary dyskinesia status post lap haydee 08/09/2021 Admit to hospitalist service for further management GI consult Surgery consult Pending HIDA scan Keep n.p.o. for nuc med scan Continue IV fluids Continue empiric IV antibiotics Lovenox for DVT prophylaxis Protonix GI prophylaxis NPO CODE STATUS full Discussed with RN and SW Disposition [inpatient management as above DPOA: Justifications for Admission Other Justification EDEL FLEMING MD August 27, 2021 08:41
[2021-08-27] MEDS ORDERED: DOCUSATE SODIUM 100 MG CAPSULE. PO PRN (08:45)
[2021-08-27] MEDS ORDERED: diphenhydrAMINE 50 MG/ML VIAL IVP PRN (08:45)
[2021-08-27] MEDS ORDERED: ZOLPIDEM 5 MG TABLET. PO PRN ×2 (08:45→20:15)
[2021-08-27] MEDS ORDERED: DEXTROSE 50% 25 GM / 50ML DISP.SYRIN. IV PRN (08:45)
[2021-08-27] MEDS ORDERED: PROCHLORPERAZINE 10 MG/2 ML VIAL. IV PRN (08:45)
[2021-08-27] MEDS ORDERED: SENNOSIDES 8.6 MG TABLET PO PRN (08:45)
[2021-08-27] MEDS ORDERED: ACETAMINOPHEN 325 MG TABLET. PO PRN (08:45)
[2021-08-27] MEDS ORDERED: MORPHINE SULFATE 2 MG/ML INJ. IV PRN (08:45)
[2021-08-27] MEDS ORDERED: LORazepam 0.5 MG TABLET PO PRN (08:45)
[2021-08-27] MEDS ORDERED: diphenhydrAMINE HCL 25 MG CAPSULE PO PRN ×2 (08:45)
[2021-08-27] MEDS: ENOXAPARIN 40 MG/0.4 ML SYRINGE. SQ SCH (10:02)
--- NOTE | 2021-08-27 10:51 | PDOC ---
G I PROGRESS NOTE Reason for Follow-up [facility] Subjective Bloated s/p haydee one month ago Physical Exam Lungs clear CV S1 S2 ABD +BS, soft, nontnder, distended Review of Relevant I have reviewed the following items justin (where applicable) has been applied. Medications Current Medications Piperacillin Sod/ Tazobactam Sod (Zosyn Per Pharmacy) 1 each PRN DAILY PRN MC SEE COMMENTS; Start 08/27/21 at 03:15 Piperacillin Sod/ Tazobactam Sod 3.375 gm/Sodium Chloride 50 ml @ 100 mls/hr Q6HRS IV Last administered on 08/27/21at 03:53; Start 08/27/21 at 04:00 Sodium Chloride 1,000 ml @ 100 mls/hr Q10H IV Last administered on 08/27/21at 03:46; Start 08/27/21 at 03:30 Ondansetron HCl (Zofran) 4 mg PRN Q6HRS PRN IVP NAUSEA/VOMITING; Start 08/27/21 at 03:15 Morphine Sulfate (Morphine Sulfate) 2 mg PRN Q2HR PRN IVP PAIN; Start 08/27/21 at 03:15 Sennosides (Senna) 17.2 mg PRN BID PRN PO CONSTIPATION; Start 08/27/21 at 08:45 Docusate Sodium (Colace) 100 mg PRN DAILY PRN PO HARD STOOLS; Start 08/27/21 at 08:45 Ondansetron HCl (Zofran) 4 mg PRN Q6HRS PRN IVP NAUSEA/VOMITING, 1st CHOICE; Start 08/27/21 at 08:45 Dextrose (Dextrose 50%-Water Syringe) 12.5 gm PRN Q15MIN PRN IV SEE COMMENTS; Start 08/27/21 at 08:45 Sodium Chloride 1,000 ml @ 100 mls/hr Q10H IV Last administered on 08/27/21at 10:03; Start 08/27/21 at 09:30 Acetaminophen (Tylenol) 650 mg PRN Q4HRS PRN PO TEMP OVER 100.4F OR MILD PAIN; Start 08/27/21 at 08:45 Lorazepam (Ativan) 0.5 mg PRN Q6HRS PRN PO ANXIETY / AGITATION; Start 08/27/21 at 08:45 Lorazepam (Ativan Inj) 0.25 mg PRN Q4HRS PRN IV ANXIETY / AGITATION; Start 08/27/21 at 08:45 Enoxaparin Sodium (Lovenox 40mg Syringe) 40 mg Q24H SQ Last administered on 08/27/21at 10:02; Start 08/27/21 at 09:00 Morphine Sulfate (Morphine Sulfate) 1 mg PRN Q1HR PRN IV PAIN; Start 08/27/21 at 08:45 Morphine Sulfate (Morphine Sulfate) 2 mg PRN Q2HR PRN IVP SEVERE PAIN 7-10; Start 08/27/21 at 08:45; Stop 08/28/21 at 08:44 Prochlorperazine Edisylate (Compazine) 10 mg PRN Q6HRS PRN IV NAUSEA/VOMITING, 2nd CHOICE; Start 08/27/21 at 08:45 Diphenhydramine HCl (Benadryl) 25 mg PRN Q6HRS PRN IVP ITCHING; Start 08/27/21 at 08:45 Diphenhydramine HCl (Benadryl) 25 mg PRN Q6HRS PRN PO ITCHING; Start 08/27/21 at 08:45 Diphenhydramine HCl (Benadryl) 25 mg PRN QHS PRN PO INSOMNIA, 1st CHOICE; Start 08/27/21 at 08:45 Zolpidem Tartrate (Ambien) 2.5 mg PRN QHS PRN PO INSOMNIA, 2nd CHOICE; Start 08/27/21 at 08:45 Active Scripts Active Vitamin B-1 (Thiamine Mononitrate) 100 Mg Tablet 300 Mg PO DAILY 30 Days [Folic Acid] 1 MG Tablet 1 Mg PO DAILY 30 Days Reported Ambien (Zolpidem Tartrate) 10 Mg Tablet 10 Mg PO PRN QHS PRN Magnesium (Magnesium Oxide) 250 Mg Tablet 250 Mg PO DAILY Losartan Potassium 50 Mg Tablet 25 Mg PO DAILY Levothyroxine Sodium 100 Mcg Tablet 100 Mcg PO DAILYAC Ondansetron Hcl 4 Mg Tablet 4 Mg PO PRN BID PRN Nexium Capsule (Esomeprazole Magnesium) 20 Mg Capsule.dr 20 Mg PO DAILYAC Carvedilol 25 Mg Tablet 25 Mg PO BIDWMEALS Vitals/I & O Vital Sign - Last 24 Hours 08/27/21 08/27/21 08/27/21 08/27/21 01:20 01:20 03:26 07:00 Temp 97.7 97.9 97.6 97.7 97.9 97.6 Pulse 83 80 79 Resp 20 18 18 B/P (MAP) 162/97 (118) 155/93 (113) 158/92 (114) Pulse Ox 99 96 96 O2 Delivery Room Air Room Air Room Air Problem List Abd pain- with steatosis on liver biopsy, awiat addendum, SB series, GES, and colonoscpy to assess for obstruction as o/p or dysmotility, trial of prednisone may be needed for transaminitis if other work as op is unrevealing. Patient is stable for release pending labs today Justicifation of Admission Dx: Justifications for Admission: Justification of Admission Dx: N/A CHRISTIN STORY MD August 27, 2021 10:51
[2021-08-27 10:56] LABS: ALBUMIN 2.3 g/dL (3.4-5.0); ALBUMIN/GLOBULIN RATIO 0.5 (1.0-1.7); CALCIUM 7.4 mg/dL (8.5-10.1); CREATININE 0.6 mg/dL (0.6-1.0); MAGNESIUM 0.7 mg/dL (1.8-2.4); POTASSIUM 3.4 mmol/L (3.5-5.1); TOTAL PROTEIN 6.5 g/dL (6.4-8.2)
--- NOTE | 2021-08-27 11:09 | PDOC2 ---
CONSULT Date of Consult Date of Consult DATE: 08/27/21 TIME: 11:03 History of Present Illness Reason for Visit: The patient is a 56 year old female who is just over 2 weeks from a lap haydee by Dr Carbajal. She was generally doing ok, but developed some nausea, dry heaves, and a bloated feeling. This prompted her to report to the ER at [place]. She denies significant abdominal pain, only some mild discomfort in the R lateral abdomen. While in the ER a CT scan of the abdomen was done which reported noted free fluid and raised concern for a bile leak. She had some mild elevations of her LFTs there as well. Currently she is comfortable and hoping to go home soon. Past Medical History Cardiovascular: HTN GI: Other Endocrine: Hypothyroidism Past Surgical History Past Surgical History: Cholecystectomy, , Tubal Ligation, Tonsillectomy Social History Quit ALCOHOL: heavy Drugs: Other Current Medications Current Medications Current Medications Piperacillin Sod/ Tazobactam Sod (Zosyn Per Pharmacy) 1 each PRN DAILY PRN MC SEE COMMENTS; Start 08/27/21 at 03:15 Piperacillin Sod/ Tazobactam Sod 3.375 gm/Sodium Chloride 50 ml @ 100 mls/hr Q6HRS IV Last administered on 08/27/21at 03:53; Start 08/27/21 at 04:00 Sodium Chloride 1,000 ml @ 100 mls/hr Q10H IV Last administered on 08/27/21at 03:46; Start 08/27/21 at 03:30 Ondansetron HCl (Zofran) 4 mg PRN Q6HRS PRN IVP NAUSEA/VOMITING; Start 08/27/21 at 03:15 Morphine Sulfate (Morphine Sulfate) 2 mg PRN Q2HR PRN IVP PAIN; Start 08/27/21 at 03:15 Sennosides (Senna) 17.2 mg PRN BID PRN PO CONSTIPATION; Start 08/27/21 at 08:45 Docusate Sodium (Colace) 100 mg PRN DAILY PRN PO HARD STOOLS; Start 08/27/21 at 08:45 Ondansetron HCl (Zofran) 4 mg PRN Q6HRS PRN IVP NAUSEA/VOMITING, 1st CHOICE; Start 08/27/21 at 08:45 Dextrose (Dextrose 50%-Water Syringe) 12.5 gm PRN Q15MIN PRN IV SEE COMMENTS; Start 08/27/21 at 08:45 Sodium Chloride 1,000 ml @ 100 mls/hr Q10H IV Last administered on 08/27/21at 10:03; Start 08/27/21 at 09:30 Acetaminophen (Tylenol) 650 mg PRN Q4HRS PRN PO TEMP OVER 100.4F OR MILD PAIN; Start 08/27/21 at 08:45 Lorazepam (Ativan) 0.5 mg PRN Q6HRS PRN PO ANXIETY / AGITATION; Start 08/27/21 at 08:45 Lorazepam (Ativan Inj) 0.25 mg PRN Q4HRS PRN IV ANXIETY / AGITATION; Start 08/27/21 at 08:45 Enoxaparin Sodium (Lovenox 40mg Syringe) 40 mg Q24H SQ Last administered on 08/27/21at 10:02; Start 08/27/21 at 09:00 Morphine Sulfate (Morphine Sulfate) 1 mg PRN Q1HR PRN IV PAIN; Start 08/27/21 at 08:45 Morphine Sulfate (Morphine Sulfate) 2 mg PRN Q2HR PRN IVP SEVERE PAIN 7-10; Start 08/27/21 at 08:45; Stop 08/28/21 at 08:44 Prochlorperazine Edisylate (Compazine) 10 mg PRN Q6HRS PRN IV NAUSEA/VOMITING, 2nd CHOICE; Start 08/27/21 at 08:45 Diphenhydramine HCl (Benadryl) 25 mg PRN Q6HRS PRN IVP ITCHING; Start 08/27/21 at 08:45 Diphenhydramine HCl (Benadryl) 25 mg PRN Q6HRS PRN PO ITCHING; Start 08/27/21 at 08:45 Diphenhydramine HCl (Benadryl) 25 mg PRN QHS PRN PO INSOMNIA, 1st CHOICE; Start 08/27/21 at 08:45 Zolpidem Tartrate (Ambien) 2.5 mg PRN QHS PRN PO INSOMNIA, 2nd CHOICE; Start 08/27/21 at 08:45 Active Scripts Active Vitamin B-1 (Thiamine Mononitrate) 100 Mg Tablet 300 Mg PO DAILY 30 Days [Folic Acid] 1 MG Tablet 1 Mg PO DAILY 30 Days Reported Ambien (Zolpidem Tartrate) 10 Mg Tablet 10 Mg PO PRN QHS PRN Magnesium (Magnesium Oxide) 250 Mg Tablet 250 Mg PO DAILY Losartan Potassium 50 Mg Tablet 25 Mg PO DAILY Levothyroxine Sodium 100 Mcg Tablet 100 Mcg PO DAILYAC Ondansetron Hcl 4 Mg Tablet 4 Mg PO PRN BID PRN Nexium Capsule (Esomeprazole Magnesium) 20 Mg Capsule.dr 20 Mg PO DAILYAC Carvedilol 25 Mg Tablet 25 Mg PO BIDWMEALS Allergies Allergies: Coded Allergies: Sulfa (Sulfonamide Antibiotics) (Verified Adverse Reaction, Intermediate, Rash, 08/09/21) ROS General: No: Chills, Night Sweats, Fatigue, Malaise, Appetite, Other PSYCHOLOGICAL ROS: No: Anxiety, Behavioral Disorder, Concentration difficultie, Decreased libido, Depression, Disorientation, Hallucinations, Hostility, Irritablity, Memory difficulties, Mood Swings, Obsessive thoughts, Physical abuse, Sexual abuse, Sleep disturbances, Suicidal ideation, Other Eyes: No Blurry vision, No Decreased vision, No Double vision, No Dry eyes, No Excessive tearing, No Eye Pain, No Itchy Eyes, No Loss of vision, No Photophobia, No Scotomata, No Uses contacts, No Uses glasses, No Other HEENT: No: Heacaches, Visual Changes, Hearing change, Nasal congestion, Nasal discharge, Oral lesions, Sinus pain, Sore Throat, Epistaxis, Sneezing, Snoring, Tinnitus, Vertigo, Vocal changes, Other Hematological and Lymphatic: YES: Bleeding Problems, Blood Clots, Blood Transfusions, Brusing, Night Sweats, Pallor, Swollen Lymph Nodes, Other ENDOCRINE: No: Breast Changes, Galactorrhea, Hair Pattern Changes, Hot Flashes, Malaise/lethargy, Mood Swings, Palpitations, Polydipsia/polyuria, Skin Changes, Temperature Intolerance, Unexpected Weight Changes, Other Cardiovascular: No Chest Pain, No Palpitations, No Orthopnea, No Paroxysmal Noc. Dyspnea, No Edema, No Lt Headedness, No Other Gastrointestinal: Yes Nausea Genitourinary: No Dysuria, No Frequency, No Incontinence, No Hematuria, No Retention, No Discharge, No Urgency, No Pain, No Flank Pain, No Other, No , No , No , No , No , No , No Musculoskeletal: No Gait Disturbance, No Joint Pain, No Joint Stiffness, No Joint Swelling, No Muscle Pain, No Muscular Weakness, No Pain In:, No Swelling In:, No Other Neurological: No Behavorial Changes, No Bowel/Bladder ControlChng, No Confusion, No Dizziness, No Gait Disturbance, No Headaches, No Impaired Coord/balance, No Memory Loss, No Numbness/Tingling, No Seizures, No Speech Problems, No Tremors, No Visual Changes, No Weakness, No Other Skin: No Dry Skin, No Eczema, No Hair Changes, No Lumps, No Mole Changes, No Mottling, No Nail Changes, No Pruritus, No Rash, No Skin Lesion Changes, No Other, No Acne Physical Exam General: Alert, Oriented X3, Cooperative, No acute distress HEENT: Atraumatic Lungs: Clear to auscultation Abdomen: Soft, No tenderness Extremities: No clubbing, No cyanosis Skin: No rashes Neuro: Normal speech Psych/Mental Status: Mental status NL Vitals VITALS Vital Signs Date Time Temp Pulse Resp B/P (MAP) Pulse Ox O2 Delivery O2 Flow Rate FiO2 08/27/21 07:00 97.6 79 18 158/92 (114) 96 Room Air 97.6 Assessment/Plan Assessment/Plan 56 year old female s/p lap haydee, will check HIDA scan to ensure no bile leak. If negative could work toward discharge. CHRISTIN LARA MD August 27, 2021 11:09
[2021-08-27 12:28] LABS: BASO # 0.1 x10^3/uL (0.0-0.2); BASO % 1 % (0-3); EOS # 0.1 x10^3/uL (0.0-0.7); EOS % 1 % (0-3); HEMOGLOBIN 10.7 g/dL (12.0-15.5); LYMPH # 1.9 x10^3/uL (1.0-4.8); LYMPH % 14 % (24-48); MEAN CORPUSCULAR HEMOGLOBIN 35 pg (25-35); MEAN CORPUSCULAR HGB CONC 34 g/dL (31-37); MEAN CORPUSCULAR VOLUME 101 fL (79-100); MONO # 1.3 x10^3/uL (0.0-1.1); MONO % 10 % (0-9); NEUT # 10.4 x10^3/uL (1.8-7.7); NEUT % 75 % (31-73); PLATELET COUNT 383 x10^3/uL (140-400); RED BLOOD COUNT 3.09 x10^6/uL (3.50-5.40); WHITE BLOOD COUNT 13.9 x10^3/uL (4.0-11.0)
[2021-08-27] MEDS ORDERED: MAGNESIUM SULFATE 2GM 50 ML IV ONE (15:00)
[2021-08-27] MEDS: POTASSIUM CHLORIDE 10MEQ 100 ML IV SCH ×4 (16:24→22:25)
--- NOTE | 2021-08-27 16:59 | NUR ---
Spoke with Dr. Louis regarding pt want to leave because she says that she can't eat or drink so she is not going to be able to "shit." Dr. Louis said that he does not want to discharge her until she has the scan to her stomach to see if she is "leaking" and that is the main reason why she is NPO. Radiology was called to see if they could get the scan (heptobilirary) completed this evening. Radiology came up at this time and took pt down to have scan done.
--- NOTE | 2021-08-27 18:50 | RAD ---
EXAMINATION: NM HEPATOBILIARY SCAN Indication: History of cholecystectomy. Nausea. Concern for bile leak. TECHNIQUE: After the intravenous administration of 5.4 mCi of Tc 99m Choletec, imaging over the abdom en was obtained. FINDINGS: There is homogeneous uptake in the liver with prompt bile duct filling. Bowel activity is s een at 5-10 minutes. Activity remains within the small bowel. There is no evidence of leak. IMPRESSION: 1. Normal hepatobiliary uptake and biliary duct excretion. No evidence of leak. Electronically signed by: Jadon Truong MD (08/27/2021 6:47 PM) [id number]
[2021-08-27] MEDS ORDERED: hydrALAZINE 20 MG/ML VIAL. IVP PRN (20:15)
[2021-08-27] MEDS ORDERED: ONDANSETRON ODT 4 MG TAB.RAPDIS. PO PRN (20:15)
[2021-08-27] MEDS: CARVEDILOL 12.5 MG TABLET. PO SCH (21:05)
[2021-08-28 03:00] VITALS: BP 138/69
[2021-08-28] MEDS: PIPERACILLIN/TAZOBACTAM 3.375 GM in IV NORMAL SALINE 50ML 50 ML IV SCH (05:56)
[2021-08-28] MEDS ORDERED: LEVOTHYROXINE 100 MCG TABLET PO SCH (06:00)
[2021-08-28 07:00] VITALS: BP 148/89
[2021-08-28] MEDS ORDERED: PANTOPRAZOLE 40 MG TABLET.DR. PO SCH (07:30)
[2021-08-28] MEDS: CARVEDILOL 12.5 MG TABLET. PO SCH (08:00)
[2021-08-28 08:04] LABS: CALCIUM 6.7 mg/dL (8.5-10.1); CREATININE 0.6 mg/dL (0.6-1.0); PHOSPHORUS 3.6 mg/dL (2.6-4.7); POTASSIUM 3.5 mmol/L (3.5-5.1)
--- NOTE | 2021-08-28 08:24 | DISCH ---
DISCHARGE INSTRUCTIONS Condition on Discharge Condition on Discharge: Stable Activity After Discharge Activity Instructions for Disc: Activity as tolerated Lifting Instructions after Dis: Do not lift >10 pounds Exercise Instruction after Dis: Walk 30 min, 3 x per week Driving Instructions after Dis: Do not drive today Weight Bearing Status after Di: Full weight bearing Diet after Discharge Diet after Discharge: Cardiac Checks after Discharge Checks after discharge: Check blood press - daily Follow-Up Follow up with: PCP within 2 weeks of discharge Follow Up With: General surgery as scheduled or as needed EDEL FLEMING MD August 28, 2021 08:24
[2021-08-28] MEDS ORDERED: MAGNESIUM OXIDE 400 MG TABLET PO SCH (09:00)
[2021-08-28] MEDS ORDERED: LOSARTAN POTASSIUM 25 MG TABLET. PO SCH (09:00)
[2021-08-28] MEDS ORDERED: POTASSIUM CHLORIDE 20 MEQ TABLET.ER. PO ONE (09:00)
[2021-08-28] MEDS ORDERED: CALCIUM GLUCONATE 1,000 MG/10 ML VIAL. IVP ONE (09:00)
[2021-08-28] MEDS ORDERED: FOLIC ACID 1 MG TABLET. PO SCH (09:00)
[2021-08-28] MEDS ORDERED: MAGNESIUM SULFATE 2GM 50 ML IV ONE (09:00)
[2021-08-28] MEDS ORDERED: THIAMINE 100 MG TABLET. PO SCH (09:00)
[2021-08-28] MEDS: IV NORMAL SALINE 1000ML BAG 1,000 ML IV SCH ×2 (09:30→10:48)
[2021-08-28 09:41] LABS: BASO # 0.1 x10^3/uL (0.0-0.2); BASO % 1 % (0-3); EOS # 0.2 x10^3/uL (0.0-0.7); EOS % 2 % (0-3); HEMATOCRIT 29.4 % (36.0-47.0); LYMPH # 1.6 x10^3/uL (1.0-4.8); LYMPH % 15 % (24-48); MEAN CORPUSCULAR HEMOGLOBIN 35 pg (25-35); MEAN CORPUSCULAR HGB CONC 34 g/dL (31-37); MEAN CORPUSCULAR VOLUME 102 fL (79-100); MONO % 9 % (0-9); NEUT # 7.9 x10^3/uL (1.8-7.7); NEUT % 74 % (31-73); PLATELET COUNT 301 x10^3/uL (140-400); RED BLOOD COUNT 2.89 x10^6/uL (3.50-5.40); RED CELL DISTRIBUTION WIDTH 14.4 % (11.5-14.5); WHITE BLOOD COUNT 10.7 x10^3/uL (4.0-11.0)
[2021-08-28] MEDS: ENOXAPARIN 40 MG/0.4 ML SYRINGE. SQ SCH (10:49)
[2021-08-28] MEDS ORDERED: SPIR25TA PO (10:59)
[2021-08-28] MEDS ORDERED: FURO40TA4 PO (10:59)
[2021-08-28 11:00] VITALS: BP 155/90
[2021-08-28] MEDS ORDERED: SPIRONOLACTONE 25 MG TABLET PO SCH (11:00)
[2021-08-28] MEDS ORDERED: FUROSEMIDE 40 MG TABLET. PO SCH (11:00)
[2021-08-28] MEDS ORDERED: LACTOBACILLUS RHAMNOSUS GG 1 CAPSULE. PO SCH (13:00)
--- NOTE | 2021-08-28 14:01 | NUR ---
Pt was discharged to home at 1310. Taken to front front entrance by w/c and picked up by her . Discharge instructions were provided.
--- NOTE | 2021-08-29 13:11 | PDOC3 ---
[facility]-Discharge Summary Date of Admission: Date of Admission: August 27, 2021 Date of Discharge: Date of Discharge: August 28, 2021 Discharge Diagnosis: Discharge Diagnosis: Assessment/Plan Acute abdominal pain likely related to uncompensated ascites Elevated transaminitis Mild hyperbilirubinemia History of cirrhosis with ascites History of alcohol abuse History of biliary dyskinesia status post lap haydee 08/09/2021 Hospital Course: Hospital Course: 56-year-old female status post laparoscopic cholecystectomy on August 09, 2021 who comes to the emergency department in [facility] for some nausea and abdominal pain and bloating which she states has been worsening for the past couple days. Patient did contact Dr. Pérez and she was directed to the emergency department. Imaging was completed at the ED and and there was fluid collection on CT showing possible bile leak. There is hepatomegaly and early cirrhosis from alcohol use and a surgery consult was recommended. Patient was transferred over from [facility] by ambulance and admitted for further investigation. Patient upon my encounter still complained of abdominal bloating this but did not have any nausea or vomiting. She does want to go home but she feels better than before. Denies any fevers, shortness of breath, diarrhea, constipation or fevers or chills. Patient was admitted for further management and underwent HIDA scan. Results did not show any bile leak. By day of discharge patient was tolerating diet and her pain was much improved. Her CT from [place] still showed cirrhosis with ascites. Patient states that she has been on furosemide in the past before but she did not refill her medications. For this reason I have restarted her on furosemide and spironolactone. Instructed patient to follow closely with her PCP and gastroenterology. Rest of hospital course was uneventful. Activity: Activity: Resume previous activity Diet: Diet: Regular Medications: Home Meds Active Scripts Furosemide (FUROSEMIDE) 40 Mg Tablet, 40 MG PO DAILY for ascites for 90 Days, #90 TAB 2 Refills Prov:EDEL FLEMING MD 08/28/21 Spironolactone (ALDACTONE) 25 Mg Tablet, 100 MG PO DAILY for blood pressure and ascites for 90 Days, #360 TAB 2 Refills Prov:EDEL FLEMING MD 08/28/21 Thiamine Mononitrate (VITAMIN B-1) 100 Mg Tablet, 300 MG PO DAILY for supplement for 30 Days, #90 TAB 2 Refills Prov:EDEL FLEMING MD 08/12/21 [Folic Acid] 1 MG TABLET No Conflict Check, 1 MG PO DAILY for supplement for 30 Days, #30 2 Refills Prov:EDEL FLMEING MD 08/12/21 Reported Medications Magnesium Oxide (MAGNESIUM) 250 Mg Tablet, 250 MG PO DAILY for Supplement, TAB 08/27/21 Losartan Potassium (LOSARTAN POTASSIUM) 50 Mg Tablet, 25 MG PO DAILY for HYP ERTENSION, TAB 08/08/21 Levothyroxine Sodium (LEVOTHYROXINE SODIUM) 100 Mcg Tablet, 100 MCG PO DAILYAC for THYROID SUPPLEMENT, #30 TAB 0 Refills 08/08/21 Ondansetron Hcl (ONDANSETRON HCL) 4 Mg Tablet, 4 MG PO PRN BID PRN for NAUSEA/VOMITING, TAB 08/08/21 Esomeprazole Magnesium (NEXIUM CAPSULE) 20 Mg Capsule.dr, 20 MG PO DAILYAC for CONTROL REFLUX, #30 CAP 0 Refills 08/08/21 Carvedilol (CARVEDILOL) 25 Mg Tablet, 25 MG PO BIDWMEALS for CARDIAC, TAB 08/08/21 Scheduled Carvedilol (Carvedilol), 25 MG PO BIDWMEALS, (Reported) Esomeprazole Magnesium (Nexium Capsule), 20 MG PO DAILYAC, (Reported) Furosemide (Furosemide), 40 MG PO DAILY Levothyroxine Sodium (Levothyroxine Sodium), 100 MCG PO DAILYAC, (Reported) Losartan Potassium (Losartan Potassium), 25 MG PO DAILY, (Reported) Magnesium Oxide (Magnesium), 250 MG PO DAILY, (Reported) Spironolactone (Aldactone), 100 MG PO DAILY Thiamine Mononitrate (Vitamin B-1), 300 MG PO DAILY [Folic Acid], 1 MG PO DAILY Scheduled PRN Ondansetron Hcl (Ondansetron Hcl), 4 MG PO PRN BID PRN for NAUSEA/VOMITING, (Reported) Total Time: Total Time: Total time spent was 38 minutes in preparing scripts, discharge planning with SWI and RN and preparing this discharge summary Patient seen and examined on day of discharge. No acute abnormal findings. Justicifation of Admission Dx: Justifications for Admission: Justification of Admission Dx: N/A EDEL FLEMING MD August 29, 2021 13:11
== END 2021-08-28 13:10 | disposition home or self-care (01) | DRG 433 ==
LOC: 4 NORTH 01:38
PROVIDERS: ADMIT Internal Medicine; ATTEND Internal Medicine
DX: K74.60 Unspecified cirrhosis of liver (principal); R18.8 Other ascites; E03.9 Hypothyroidism, unspecified; I10 Essential (primary) hypertension; Z82.49 Family history of ischemic heart disease and other diseases of the circulatory system; Z83.3 Family history of diabetes mellitus; Z87.891 Personal history of nicotine dependence; Z90.49 Acquired absence of other specified parts of digestive tract; Z98.51 Tubal ligation status; K76.0 Fatty (change of) liver, not elsewhere classified
CPT/HCPCS: 36415; 78226; 80048; 80053; 82248; 83735; 84100; 85025; 87338; 96374; A9537; J0610; J1650; J2270; J2543; J3475; J3480; J7030; G0378